=== PATIENT | male | born 1970 | race Caucasian/White ===

== ENCOUNTER 2017-04-21 18:55 | Inpatient (IN) | payer BC ==
[~2017-04-21] VITALS: Ht 188 cm; Wt 120.6 kg
[~2017-04-21 18:55] MED LIST: DXY100 PO; LISI40TA PO
[2017-04-21] MEDS ORDERED: SODIUM CHLORIDE 0.9% 1000ML 2,000 ML IV STA (19:08)
--- NOTE | 2017-04-21 19:16 | EMERGENCY ROOM VISIT NOTE ---
History Report prepared by Paola: Tan Hensley Under the Supervision of: Pb HenningO. First contact with patient: 19:07 Chief Complaint: REFERRED BY DOCTOR Stated Complaint: FREQUENT URIATION, BLURRY VISION History of Present Illness The patient is a 46 year old male who presents to the Emergency Room with complaints of persistent frequent urination that started 2 weeks ago. He says that he has had a dry mouth and has been persistently thirsty. He adds that he has had blurry vision. The patient notes that he has never had symptoms like this before. He was seen at the [facility] walk-in clinic and was referred here for evaluation. He denies any chest pain, nausea, vomiting, or shortness of breath. The patient says that he has hypertension, but no other medical conditions. He is a social drinker, and uses tobacco products. He has no surgical history. Source of History: patient, spouse/significant other Onset: 2 weeks ago Position: other (go) Timing: other (persistent) Associated Symptoms: No chest pain, No SOB, No nausea, No vomiting Note: Associated symptoms: Persistent thirst, blurry vision, dry mouth. Review of Systems See HPI for pertinent positives & negatives. A total of 10 systems reviewed and were otherwise negative. Past Medical & Surgical Medical Problems: (1) HTN (hypertension) Family History Diabetes mellitus Hypertension Social History Smoking Status: Current Every Day Smoker Alcohol Use: occasionally Marital Status: Housing Status: lives with family Occupation Status: employed Current/Historical Medications Scheduled Telmisartan/Hctz (Micardis Hct 80MG/12.5MG), 1 TAB PO DAILY Allergies Coded Allergies: No Known Allergies (Unverified , 12/16/07) Physical Exam Vital Signs Date Time Temp Pulse Resp B/P (MAP) Pulse Ox O2 Delivery O2 Flow Rate FiO2 04/21/17 22:49 99 28 144/96 94 Room Air 04/21/17 21:39 Room Air 04/21/17 20:42 94 22 130/98 94 Room Air 04/21/17 20:05 96 04/21/17 18:59 37.2 112 18 157/93 94 Room Air Physical Exam GENERAL: Patient is awake, alert, and in no acute distress. Patient is resting comfortably and showing no signs of anxiety EYES: The conjunctivae are clear. The pupils are round and reactive. EARS, NOSE, MOUTH AND THROAT: The nose is without any evidence of any deformity. Mucous membranes are moist tongue is midline NECK: The neck is nontender and supple. RESPIRATORY: Normal respiratory effort is noted there is no evidence of wheezing rhonchi or rales CARDIOVASCULAR: Heart sounds are tachycardic but regular, no definite murmur to auscultation. GASTROINTESTINAL: The abdomen is soft. Bowel sounds are present in all quadrants. Abdomen is nontender MUSCULOSKELETAL/EXTREMITIES: There is no evidence of gross deformity full range of motion is noted in the hips and shoulders SKIN: There is no obvious evidence of any rash. There are no petechiae, pallor or cyanosis noted. NEUROLOGIC: Patient is awake alert and oriented x3 strength is symmetric patellar reflexes are 2+ bilaterally Medical Decision & Procedures ER Provider Diagnostic Interpretation: X-ray results as stated below per interpretation by me and the radiologist. CHEST ONE VIEW PORTABLE HISTORY: dehydration COMPARISON: None. FINDINGS: Low lung volumes. Mild elevation of the right hemidiaphragm. The heart is normal in size. No pleural effusions. No pneumothorax. IMPRESSION: No acute process. Mild elevation of the right hemidiaphragm. Electronically signed by: Az Branch M.D. 04/21/2017 7:54 PM Dictated Date/Time: 04/21/2017 7:51 PM Laboratory Results 04/21/17 19:21 Red Blood Count 5.59, Mean Corpuscular Volume 84.4, Mean Corpuscular Hemoglobin 32.4, Mean Corpuscular Hemoglobin Concent 38.3, Neutrophils (%) (Auto) 67.1, Lymphocytes (%) (Auto) 24.3, Monocytes (%) (Auto) 7.1, Eosinophils (%) (Auto) 1.0, Basophils (%) (Auto) 0.3, Neutrophils # (Auto) 5.84, Lymphocytes # (Auto) 2.12, Monocytes # (Auto) 0.62, Eosinophils # (Auto) 0.09, Basophils # (Auto) 0.03 04/21/17 19:21 Test 04/21/17 19:04 04/21/17 19:21 04/21/17 19:35 04/21/17 19:40 Bedside Glucose > 600 mg/dl (70-99) White Blood Count 8.72 K/uL (4.8-10.8) Red Blood Count 5.59 M/uL (4.7-6.1) Hemoglobin 18.1 g/dL (14.0-18.0) Hematocrit 47.2 % (42-52) Mean Corpuscular Volume 84.4 fL (80-100) Mean Corpuscular Hemoglobin 32.4 pg (25-34) Mean Corpuscular Hemoglobin Concent 38.3 g/dl (32-36) Platelet Count 238 K/uL (130-400) Neutrophils (%) (Auto) 67.1 % Lymphocytes (%) (Auto) 24.3 % Monocytes (%) (Auto) 7.1 % Eosinophils (%) (Auto) 1.0 % Basophils (%) (Auto) 0.3 % Neutrophils # (Auto) 5.84 K/uL (1.4-6.5) Lymphocytes # (Auto) 2.12 K/uL (1.2-3.4) Monocytes # (Auto) 0.62 K/uL (0.11-0.59) Eosinophils # (Auto) 0.09 K/uL (0-0.5) Basophils # (Auto) 0.03 K/uL (0-0.2) Immature Granulocyte % (Auto) 0.2 % Immature Granulocyte # (Auto) 0.02 K/uL (0.00-0.02) Red Blood Cell Morphology Unremarkable Anion Gap 12.0 mmol/L (3-11) Est Creatinine Clear Calc Drug Dose 100.9 ml/min Estimated GFR () 76.9 Estimated GFR (Non- 66.4 BUN/Creatinine Ratio 12.4 (10-20) Calcium Level 9.2 mg/dl (8.5-10.1) Magnesium Level 2.3 mg/dl (1.8-2.4) Total Bilirubin 1.0 mg/dl (0.2-1) Direct Bilirubin 0.2 mg/dl (0-0.2) Aspartate Amino Transf (AST/SGOT) 20 U/L (15-37) Alanine Aminotransferase (ALT/SGPT) 53 U/L (12-78) Alkaline Phosphatase 246 U/L (45-117) Total Protein 7.6 gm/dl (6.4-8.2) Albumin 4.4 gm/dl (3.4-5.0) Amylase Level 29 U/L (25-115) Lipase 217 U/L (73-393) Beta-Hydroxybutyric Acid 26.30 mg/dL (0.2-2.81) Venous Blood pH 7.39 (7.36-7.41) Venous Blood Partial Pressure CO2 39 mmHg (38.0-50.0) Venous Blood Partial Pressure O2 60 mmHg Venous Blood HCO3 23 mmol/L Venous Blood Oxygen Saturation 88.8 % Venous Blood Base Excess -2.1 mEq/L Urine Color YELLOW Urine Appearance CLEAR (CLEAR) Urine pH 5.0 (4.5-7.5) Urine Specific [place] 1.037 (1.000-1.030) Urine Protein NEG (NEG) Urine Glucose (UA) 3+ (NEG) Urine Ketones 1+ (NEG) Urine Occult Blood NEG (NEG) Urine Nitrite NEG (NEG) Urine Bilirubin NEG (NEG) Urine Urobilinogen NEG (NEG) Urine Leukocyte Esterase NEG (NEG) Laboratory results per my review. Medications Administered Medications (Trade) Dose Ordered Sig/Mary Route Start Time Stop Time Status Last Admin Dose Admin Sodium Chloride 2,000 ml @ 999 mls/hr Q2H1M STAT IV 04/21/17 19:08 04/21/17 21:08 DC 04/21/17 19:38 999 MLS/HR Insulin Human Regular (novoLIN-R U-100 PER UNIT) 6 units NOW STAT IV 04/21/17 20:50 04/21/17 20:51 DC 04/21/17 21:08 6 UNITS ED Course 1906: The patient was evaluated in room A10. A complete history and physical examination were performed. 1907: Ordered NSS 2000 ml @ 999 mls/hr IV. 2049: Ordered Novolin-R U-100 PER UNIT 6 units IV. 2051: I reevaluated the patient and he is resting comfortably. The patient verbally expressed understanding and agreement with the treatment plan. The patient will be evaluated for further treatment. 2136: I discussed the patient with Dr. Victoria- Resident mis specialist ALLYSSA. He will evaluate the patient for further treatment. Medical Decision Differential diagnosis: Etiologies such as metabolic, infection, hypo/hyperglycemia, electrolyte abnormalities, cardiac sources, intracerebral event, toxicologic, neurologic, as well as others were entertained. Nursing notes reviewed. The patient is a 46-year-old male who does not have a history of diabetes started having polyuria and polydipsia. The patient was found have an elevated blood sugar and was sent to the emergency department for further evaluation. The patient does not appear to be in DKA at this time but he does have a very elevated blood glucose. He was treated with IV fluids and IV insulin. He was reevaluated multiple times. I discussed the patient's laboratory and radiographic studies with him. [place] degree of hyperglycemia I also discussed his case with the on-call group. They've agreed to evaluate the patient in the emergency department for further management and disposition. Medication Reconcilliation Current Medication List: was personally reviewed by me Blood Pressure Screening Patient's blood pressure: Elevated blood pressure Blood pressure disposition: Elevated BP felt to be situational Consults Time Called: 2132 Consulting Physician: Dr. Victoria - resident mis specialist ALLYSSA Returned Call: 2136 I discussed the patient with Dr. Victoria- Resident mis specialist ALLYSSA. He will evaluate the patient for further treatment. Impression Primary Impression: Hyperglycemia Additional Impression: Hyponatremia Scribe Attestation The scribe's documentation has been prepared under my direction and personally reviewed by me in its entirety. I confirm that the note above accurately reflects all work, treatment, procedures, and medical decision making performed by me. Departure Information Dispostion Being Evaluated By Hospitalist Referrals Agnes Aguilar, C.R.N.P. (PCP) Patient Instructions My [facility] Problem Qualifiers
[2017-04-21] MEDS ORDERED: TELM80TA4 PO (19:31)
[2017-04-21 19:45] LABS: VEN BLD GAS O2 SATURATION 88.8 %; VEN BLOOD GAS BASE EXCESS -2.1 mEq/L
[2017-04-21 19:51] LABS: URINE APPEARANCE CLEAR (CLEAR); URINE BILIRUBIN NEG (NEG); URINE COLOR YELLOW; URINE NITRITE NEG (NEG); URINE SPECIFIC GRAVITY 1.037 (1.000-1.030); UROBILINOGEN NEG (NEG)
[2017-04-21 19:52] LABS: MANUAL MICROSCOPIC REQUIRED? NO; REVIEW REQ? NO
--- NOTE | 2017-04-21 19:55 | DIAGNOSTIC IMAGING REPORT ---
CHEST ONE VIEW PORTABLE HISTORY: dehydration COMPARISON: None. FINDINGS: Low lung volumes. Mild elevation of the right hemidiaphragm. The heart is normal in size. No pleural effusions. No pneumothorax. IMPRESSION: No acute process. Mild elevation of the right hemidiaphragm. Electronically signed by: Az Branch M.D. 04/21/2017 7:54 PM Dictated Date/Time: 04/21/2017 7:51 PM
[2017-04-21 20:20] LABS: BUN/CREATININE RATIO 12.4 (10-20); CALCIUM 9.2 mg/dl (8.5-10.1); CREATININE 1.3 mg/dl (0.60-1.40); MAGNESIUM 2.3 mg/dl (1.8-2.4); POTASSIUM 3.9 mmol/L (3.5-5.1)
[2017-04-21 20:21] LABS: BETA-HYDROXYBUTYRATE 26.3 mg/dL (0.2-2.81)
[2017-04-21 20:24] LABS: HEMATOCRIT 47.2 % (42-52); MEAN CELL VOLUME 84.4 fL (80-100); MEAN CORPUSCULAR HEMOGLOBIN 32.4 pg (25-34); MEAN CORPUSCULAR HGB CONC 38.3 g/dl (32-36); PLATELET COUNT 238 K/uL (130-400); RED BLOOD COUNT 5.59 M/uL (4.7-6.1); WHITE BLOOD COUNT 8.72 K/uL (4.8-10.8)
[2017-04-21 20:28] LABS: BASO % 0.3 %; BASO ABS # 0.03 K/uL (0-0.2); COMPLETE YES; IG% 0.2 %; LYMPH % 24.3 %; LYMPH ABS # 2.12 K/uL (1.2-3.4); MONO % 7.1 %; NEUT % 67.1 %
[2017-04-21] MEDS ORDERED: NovoLIN-R INSULIN PER UNIT CHARGE IV STA (20:50)
[2017-04-21 21:39] VITALS: BMI 34.7
--- NOTE | 2017-04-21 22:13 | History and Physical ---
History & Physical Date & Time of Service: Apr 21, 2017 at 22:07 Chief Complaint: Frequent Uriation, Blurry Vision Primary Care Physician: Agnes Aguilar C.R.N.P. History of Present Illness Source: patient, family The patient presents as a referral from a [facility] walk-in clinic in [place]. The patient presents today complaining of 2 weeks of constant urination and blurry vision. He also complains of leg cramping bilaterally. Over the past 2 weeks, symptoms have been getting worse. He estimates that he is urinating 15 times per day. No dysuria. Every time drinks within 30 minutes is urinating. Denies any acute triggers to symptoms. He states he drinks Gatorade, vitamin water, soda. Given persistence of symptoms, told patient to go to Walk-in clinic today. BSG was taken and was above the upper limit of detection. He denies any pre-this diagnosis of diabetes. Father has diabetes, uncertain if it was type 1 or type 2 but states it was diagnosed later in life. Regarding other symptoms as possible triggers to his hyperglycemia, he denies any chest pain, no SOB, no coughing or wheezing. He has not had fevers, chills or nightsweats. Appetite has been normal but he has been trying to cut back on sugary foods. He is also trying to cut down on portion size for the past 1 month. No nausea, vomiting, diarrhea or constipation. On arrival to the emergency department, was found to have a blood sugar rate then 600. BMP revealed blood sugar of 768. He was treated with 2 L of normal saline bolus, given 6 units of regular insulin IV. He states that he has never had insulin before in his life Past Medical/Surgical History Medical Problems: (1) HTN (hypertension) Status: Chronic Surgeries - None Family History Diabetes mellitus Hypertension Social History Smoking Status: Current Some Day Smoker Smokeless Tobacco Use: Yes (chews tobacco) Alcohol Use: socially (on weekends; total 12 units per week.) Drug Use: none Marital Status: Housing status: lives with family Occupational Status: employed Immunizations History of Influenza Vaccine: Unknown History of Tetanus Vaccine?: Unknown History of Pneumococcal: No History of Hepatitis B Vaccine: Unknown Multi-Drug Resistant Organisms History of MDRO: No Allergies Coded Allergies: No Known Allergies (Unverified , 12/16/07) Home Medications Scheduled Telmisartan/Hctz (Micardis Hct 80MG/12.5MG), 1 TAB PO DAILY Review of Systems A 10 point review of systems was negative unless stated above. Physical Exam Vital Signs Date Time Temp Pulse Resp B/P (MAP) Pulse Ox O2 Delivery O2 Flow Rate FiO2 04/21/17 21:39 Room Air 04/21/17 20:42 94 22 130/98 94 Room Air 04/21/17 20:05 96 04/21/17 18:59 37.2 112 18 157/93 94 Room Air General Appearance: WD/WN, no apparent distress Head: normocephalic, atraumatic Eyes: normal inspection, EOMI ENT: hearing grossly normal, pharynx normal Neck: supple, no adenopathy, no JVD Respiratory/Chest: lungs clear, no respiratory distress Cardiovascular: regular rate, rhythm, no gallop, no murmur Abdomen/GI: normal bowel sounds, non tender, soft Back: no CVA tenderness, no muscle spasm Extremities/Musculoskelatal: no pedal edema, + calf tenderness (bilateral leg cramping with palpation), + pertinent finding (2+ pulses bilaterally, normal sensation in the toes) Neurologic/Psych: alert, normal mood/affect, oriented x 3 Skin: normal color, warm/dry, no rash Lymphatic: no adenopathy Diagnostics Laboratory Results Results Past 24 Hours Test 04/21/17 19:04 04/21/17 19:21 04/21/17 19:35 04/21/17 19:40 Range/Units Bedside Glucose > 600 70-99 mg/dl White Blood Count 8.72 4.8-10.8 K/uL Red Blood Count 5.59 4.7-6.1 M/uL Hemoglobin 18.1 14.0-18.0 g/dL Hematocrit 47.2 42-52 % Mean Corpuscular Volume 84.4 80-100 fL Mean Corpuscular Hemoglobin 32.4 25-34 pg Mean Corpuscular Hemoglobin Concent 38.3 32-36 g/dl Platelet Count 238 130-400 K/uL Neutrophils (%) (Auto) 67.1 % Lymphocytes (%) (Auto) 24.3 % Monocytes (%) (Auto) 7.1 % Eosinophils (%) (Auto) 1.0 % Basophils (%) (Auto) 0.3 % Neutrophils # (Auto) 5.84 1.4-6.5 K/uL Lymphocytes # (Auto) 2.12 1.2-3.4 K/uL Monocytes # (Auto) 0.62 0.11-0.59 K/uL Eosinophils # (Auto) 0.09 0-0.5 K/uL Basophils # (Auto) 0.03 0-0.2 K/uL Immature Granulocyte % (Auto) 0.2 % Immature Granulocyte # (Auto) 0.02 0.00-0.02 K/uL Red Blood Cell Morphology Unremarkable Sodium Level 125 136-145 mmol/L Potassium Level 3.9 3.5-5.1 mmol/L Chloride Level 89 98-107 mmol/L Carbon Dioxide Level 24 21-32 mmol/L Anion Gap 12.0 3-11 mmol/L Blood Urea Nitrogen 16 7-18 mg/dl Creatinine 1.30 0.60-1.40 mg/dl Est Creatinine Clear Calc Drug Dose 100.9 ml/min Estimated GFR () 76.9 Estimated GFR (Non- 66.4 BUN/Creatinine Ratio 12.4 10-20 Random Glucose 768 70-99 mg/dl Calcium Level 9.2 8.5-10.1 mg/dl Magnesium Level 2.3 1.8-2.4 mg/dl Total Bilirubin 1.0 0.2-1 mg/dl Direct Bilirubin 0.2 0-0.2 mg/dl Aspartate Amino Transf (AST/SGOT) 20 15-37 U/L Alanine Aminotransferase (ALT/SGPT) 53 12-78 U/L Alkaline Phosphatase 246 45-117 U/L Total Protein 7.6 6.4-8.2 gm/dl Albumin 4.4 3.4-5.0 gm/dl Amylase Level 29 25-115 U/L Lipase 217 73-393 U/L Beta-Hydroxybutyric Acid 26.30 0.2-2.81 mg/dL Venous Blood pH 7.39 7.36-7.41 Venous Blood Partial Pressure CO2 39 38.0-50.0 mmHg Venous Blood Partial Pressure O2 60 mmHg Venous Blood HCO3 23 mmol/L Venous Blood Oxygen Saturation 88.8 % Venous Blood Base Excess -2.1 mEq/L Urine Color YELLOW Urine Appearance CLEAR CLEAR Urine pH 5.0 4.5-7.5 Urine Specific [place] 1.037 1.000-1.030 Urine Protein NEG NEG Urine Glucose (UA) 3+ NEG Urine Ketones 1+ NEG Urine Occult Blood NEG NEG Urine Nitrite NEG NEG Urine Bilirubin NEG NEG Urine Urobilinogen NEG NEG Urine Leukocyte Esterase NEG NEG Impression Assessment and Plan 46-year-old male with profound hyperglycemia. HbA1c is pending, though I suspect some new diagnosis of type 2 diabetes mellitus. Based on the fact that he is not acidotic, does not have an elevated anion gap, this does not appear to be a presentation of DKA. Our plan for him is as follows: Hyperglycemia - Rehydrated with 3 L normal saline bolus, and we will continue with NSS + 20 KCl at 200 ml/r - She has received 6 units IV regular insulin in the ED - At this point, I would hold off on either an insulin infusion or frequent insulin boluses, as I suspect the patient is exquisitely insulin sensitive. The main issue pertaining to hyperglycemia is volume depletion, and at this time we'll focus on rehydrating the patient as a means to bring down his blood sugars - Keep the patient fasting overnight; we can restart a diet in the morning with before meals and at bedtime Accu-Cheks to follow blood sugars - Well check BMP, mag, phosphorus every 4 hours; this will be staggered with [id number] blood sugars every 2 hours - HbA1c is pending - Diabetic education ordered - When ready for discharge, patient be discharged on metformin and titrated upwards in conjunction with PCP; will defer this decision to the daytime team Mild DENISE - Creatinine 1.3 on arrival; in comparison to baseline 1.1 - Likely secondary to volume depletion from osmotic diuresis - We will aggressively rehydrate the patient, and follow serial BMPs overnight Pseudohyponatremia - Sodium on arrival 125 in conjunction with blood sugar 768 - Corrected sodium is actually 135 - Given that the sodium drop is factitious, I think it is safe that he continue with the HCTZ component of his Micardis Hypertension - Continue Micardis DVT prophylaxis - SCD - Alex - Lovenox CODE STATUS - Level I full code Disposition - Telemetry - I do not anticipate need for OT and PT evaluations at this time- Attending Addendum: I have physically seen and examined this patient, have supervised the medical residents activities, and agree with the H&P as noted above with the following exceptions as noted. The patient denies chest pain, palpitations, shortness of breath, cough, lower extremity swelling, vision change, hearing change, sore throat, fevers, chills, sweats, weight change, fatigue, nausea, vomiting, abdominal pain, pelvic pain, blood in urine or stool, dysuria, lightheadedness, dizziness, headache, memory loss, rash, abnormal bruising or bleeding, imbalance, focal or generalized weakness, numbness or tingling in arms or legs, generalized arthralgias or myalgias, back or neck pain, night sweats, or allergy symptoms. The review of systems is otherwise negative other than for that already noted above, and at least 10 systems have been reviewed. The patient is awake, well-developed and adequately nourished, alert and oriented 3, normocephalic and atraumatic, lying in bed and in no acute distress. HEENT--PERRL, EOMI, mucous membranes and oropharynx dry. Neck--supple, no JVD or bruits, thyroid normal, trachea midline, no adenopathy. Heart--normal S1 and S2, no extra beats, no murmurs, rubs or gallops. Lungs--clear bilaterally with good air movement, no respiratory distress, no accessory muscle use. Abdomen--normal bowel sounds and soft, nontender and nondistended, no hernias or masses, no organomegaly. Extremities--no cyanosis, clubbing or edema. There are good distal pulses b/l. Dermatologic--normal skin turgor, normal color, warm and dry, no abnormal lymph nodes, no rash. Neurologic--cranial nerves II through XII grossly intact, motor and sensory examination normal. Rheumatologic--normal range of motion, nontender, muscles and joints. Psychiatric--normal affect. Assessment and Plan: 1. Hyperglycemia/new onset diabetes mellitus/no obvious signs of infection-- the patient will be admitted to telemetry unit for close monitoring. He is status post 6 units of regular IV insulin while in the ED. He has received 3 L of normal saline in the emergency department. We'll continue rehydration with normal saline with potassium at 150 ML's per hour. Follow every 4 hours BMP, magnesium, phosphorus and BHBA. Place on Accu-Cheks every 4 hours tonight, alternating with above laboratories, and cover with NovoLog sliding scale. 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 2. Hypertension--hold HCTZ, continue Micardis. Level of Care Telemetry Advanced Directives Existing Advance Directive: No Existing Living Will: No Existing Power of Tail Board Worker: No Resuscitation Status FULL RESUSCITATION VTE Prophylaxis VTE Risk Assessment Done? Y/N: Yes Risk Level: Moderate Given or contraindicated: Enoxaparin (Lovenox)SQ Social Service Consult None Apply
[2017-04-21] MEDS ORDERED: POLYETHYLENE (MIRALAX) 17 GM PACK PO PRN (22:15)
[2017-04-21] MEDS ORDERED: MAGNESIUM HYDROXIDE SUSP 30 ML UDC PO PRN (22:15)
[2017-04-21] MEDS ORDERED: ACETAMINOPHEN 325 MG TAB PO PRN (22:15)
[2017-04-21] MEDS ORDERED: ALUMINUM/MAGNESIUM/SIMETH (MAALOX MAX) 30 ML UDC PO PRN (22:15)
[2017-04-21] MEDS ORDERED: POTASSIUM CHLORIDE INJ 40 MEQ in SODIUM CHLORIDE 0.9% 1000ML 1,000 ML IV ONE (22:15)
[2017-04-21] MEDS ORDERED: ONDANSETRON INJ 2 MG/ML 2 ML VIAL IV PRN (22:15)
[2017-04-22] VITALS: BP 169/97; PULSE 104; TEMP 36.4; O2SAT 95
[2017-04-22 00:58] LABS: BUN/CREATININE RATIO 14.4 (10-20); CALCIUM 8.8 mg/dl (8.5-10.1); CREATININE 0.98 mg/dl (0.60-1.40); MAGNESIUM 2.3 mg/dl (1.8-2.4); POTASSIUM 4.1 mmol/L (3.5-5.1)
[2017-04-22 01:17] LABS: BETA-HYDROXYBUTYRATE 19.76 mg/dL (0.2-2.81)
[2017-04-22] MEDS: NSS + 20MEQ KCL 1000ML 1,000 ML IV SCH ×3 (03:31→11:36)
[2017-04-22 04:00] VITALS: BP 150/88; PULSE 84; TEMP 36.4; O2SAT 94
[2017-04-22 04:16] LABS: PROTHROMBIN TIME (PATIENT) 10.6 SECONDS (9.0-12.0)
[2017-04-22 04:24] LABS: BUN/CREATININE RATIO 14.7 (10-20); CALCIUM 8.3 mg/dl (8.5-10.1); POTASSIUM 4.3 mmol/L (3.5-5.1)
[2017-04-22 05:05] LABS: HEMATOCRIT 42.5 % (42-52); MEAN CELL VOLUME 83.8 fL (80-100); MEAN CORPUSCULAR HGB CONC 38.1 g/dl (32-36); MEAN PLATELET VOLUME 10.2 fL (7.4-10.4); PLATELET COUNT 187 K/uL (130-400); RED BLOOD COUNT 5.07 M/uL (4.7-6.1); WHITE BLOOD COUNT 6.91 K/uL (4.8-10.8)
[2017-04-22 07:08] LABS: ESTIMATED AVERAGE GLUCOSE 243 mg/dl; HA1C FLAG Normal (Normal)
[2017-04-22] MEDS ORDERED: HHS GOAL RANGE 250-350 mg/dl ONE (07:15)
--- NOTE | 2017-04-22 07:32 | Family Medicine Progress Note ---
Progress Note Date of Service Apr 22, 2017. Subjective Pt evaluation today including: conversation w/ patient, physical exam Voiding: no voiding problems Mr Zarate feels well this morning. He is adamant about going home today. 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 Last saw his PCP 1 year previously (December 2015) and fasting glucose 106. Cholesterol 155, HDL 33, Triglycerides 388. He did not follow up to that annual check up but was aware of the results generally. All Other Systems: Reviewed and Negative Medications Current Inpatient Medications Medications (Trade) Dose Ordered Sig/Mary Route Start Time Stop Time Status Last Admin Dose Admin Acetaminophen (Tylenol Tab) 650 mg Q4H PRN PO 04/21/17 22:15 05/21/17 22:14 Al Hydrox/Mg Hydrox/Simethicone (Maalox Max Susp) 15 ml Q4H PRN PO 04/21/17 22:15 05/21/17 22:14 Magnesium Hydroxide (Milk Of Magnesia Susp) 30 ml Q6H PRN PO 04/21/17 22:15 05/21/17 22:14 Polyethylene (Miralax Powder Packet) 17 gm DAILY PRN PO 04/21/17 22:15 05/21/17 22:14 Ondansetron HCl (Zofran Inj) 4 mg Q6H PRN IV 04/21/17 22:15 05/21/17 22:14 Potassium Chloride/Sodium Chloride 1,000 ml @ 200 mls/hr Q5H IV 04/22/17 01:00 05/22/17 00:59 04/22/17 06:18 200 MLS/HR Enoxaparin Sodium (Lovenox Inj) 40 mg QAM SQ 04/22/17 09:00 05/22/17 08:59 Metformin HCl (Glucophage Tab) 500 mg BID PO 04/22/17 09:00 05/22/17 08:59 UNV Insulin Aspart (novoLOG ASPART) SLIDING SCALE PCHS SC 04/22/17 08:00 05/22/17 07:59 UNV Miscellaneous (Insulin Protocol Hhs Goal Range) 1 ea ONE ONCE N/A 04/22/17 07:15 04/22/17 07:16 UNV Objective Vital Signs Date Time Temp Pulse Resp B/P (MAP) Pulse Ox O2 Delivery O2 Flow Rate FiO2 04/22/17 04:00 36.4 84 150/88 (108) 94 Room Air 04/22/17 04:00 94 Room Air 04/22/17 00:00 36.4 104 16 169/97 (121) 95 Room Air 04/22/17 00:00 95 Room Air 04/21/17 23:13 99 28 144/96 94 04/21/17 22:49 99 28 144/96 94 Room Air 04/21/17 21:39 Room Air 04/21/17 20:42 94 22 130/98 94 Room Air 04/21/17 20:05 96 04/21/17 18:59 37.2 112 18 157/93 94 Room Air Physical Exam General Appearance: no apparent distress, + obese Eyes: normal inspection, EOMI Neck: supple Respiratory/Chest: chest non-tender, lungs clear, normal breath sounds, no respiratory distress, no accessory muscle use Cardiovascular: regular rate, rhythm, no edema, no JVD, no murmur Abdomen: normal bowel sounds, non tender, soft Neurologic/Psychiatric: no motor/sensory deficits (grossly), alert, oriented x 3 Skin: normal color, warm/dry, no rash Laboratory Results 04/22/17 03:49 04/22/17 03:49 Test 04/21/17 19:21 04/21/17 19:35 04/21/17 19:40 04/22/17 00:17 Immature Granulocyte % (Auto) 0.2 % White Blood Count 8.72 K/uL (4.8-10.8) Red Blood Count 5.59 M/uL (4.7-6.1) Hemoglobin 18.1 g/dL (14.0-18.0) Hematocrit 47.2 % (42-52) Mean Corpuscular Volume 84.4 fL (80-100) Mean Corpuscular Hemoglobin 32.4 pg (25-34) Mean Corpuscular Hemoglobin Concent 38.3 g/dl (32-36) Platelet Count 238 K/uL (130-400) Neutrophils (%) (Auto) 67.1 % Lymphocytes (%) (Auto) 24.3 % Monocytes (%) (Auto) 7.1 % Eosinophils (%) (Auto) 1.0 % Basophils (%) (Auto) 0.3 % Neutrophils # (Auto) 5.84 K/uL (1.4-6.5) Lymphocytes # (Auto) 2.12 K/uL (1.2-3.4) Monocytes # (Auto) 0.62 K/uL (0.11-0.59) Eosinophils # (Auto) 0.09 K/uL (0-0.5) Basophils # (Auto) 0.03 K/uL (0-0.2) Immature Granulocyte # (Auto) 0.02 K/uL (0.00-0.02) Red Blood Cell Morphology Unremarkable Estimated Average Glucose 243 mg/dl Hemoglobin A1c 10.1 % (4.5-5.6) Total Bilirubin 1.0 mg/dl (0.2-1) Direct Bilirubin 0.2 mg/dl (0-0.2) Aspartate Amino Transf (AST/SGOT) 20 U/L (15-37) Alanine Aminotransferase (ALT/SGPT) 53 U/L (12-78) Alkaline Phosphatase 246 U/L (45-117) Total Protein 7.6 gm/dl (6.4-8.2) Albumin 4.4 gm/dl (3.4-5.0) Amylase Level 29 U/L (25-115) Lipase 217 U/L (73-393) Venous Blood pH 7.39 (7.36-7.41) Venous Blood Partial Pressure CO2 39 mmHg (38.0-50.0) Venous Blood Partial Pressure O2 60 mmHg Venous Blood HCO3 23 mmol/L Venous Blood Oxygen Saturation 88.8 % Venous Blood Base Excess -2.1 mEq/L Urine Color YELLOW Urine Appearance CLEAR (CLEAR) Urine pH 5.0 (4.5-7.5) Urine Specific [place] 1.037 (1.000-1.030) Urine Protein NEG (NEG) Urine Glucose (UA) 3+ (NEG) Urine Ketones 1+ (NEG) Urine Occult Blood NEG (NEG) Urine Nitrite NEG (NEG) Urine Bilirubin NEG (NEG) Urine Urobilinogen NEG (NEG) Urine Leukocyte Esterase NEG (NEG) Phosphorus Level 4.0 mg/dl (2.5-4.9) Magnesium Level 2.3 mg/dl (1.8-2.4) Beta-Hydroxybutyric Acid 19.76 mg/dL (0.2-2.81) Test 04/22/17 03:49 04/22/17 06:15 Red Blood Count 5.07 M/uL (4.7-6.1) Mean Corpuscular Volume 83.8 fL (80-100) Mean Corpuscular Hemoglobin 32.0 pg (25-34) Mean Corpuscular Hemoglobin Concent 38.1 g/dl (32-36) RDW Standard Deviation 37.3 fL (36.4-46.3) RDW Coefficient of Variation 12.3 % (11.5-14.5) Mean Platelet Volume 10.2 fL (7.4-10.4) Prothrombin Time 10.6 SECONDS (9.0-12.0) Prothromb Time International Ratio 1.0 (0.9-1.1) Anion Gap 4.0 mmol/L (3-11) Est Creatinine Clear Calc Drug Dose 131.2 ml/min Estimated GFR () 105.6 Estimated GFR (Non- 91.1 BUN/Creatinine Ratio 14.7 (10-20) Calcium Level 8.3 mg/dl (8.5-10.1) Bedside Glucose 240 mg/dl (70-99) Assessment and Plan 46-year-old male with profound hyperglycemia. HbA1C of 10.1. Diagnosis of [facility], newly diagnosed T2DM with HbA1C of 10.1. 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 - currently at [facility] goal of 250-350 BSG after 6 units IV insulin however this is without eating - based on HbA1C recommend basal bolus insulin regimen however will start metformin and consider SGLT2 inhibitor - Diabetic education ordered Pseudohyponatremia - resolved Hypertension - Will treat with lisinopril and titrate up as outpatient for renal protection Hyperlipidemia - based on labs from 2016 - ASCVD 56% in next 10 years - recommend moderate intensity statin - recommend starting as an outpatient with up to date labs DVT prophylaxis - SCD - MELANIE - Lovenox CODE STATUS - Full Disposition - Patient wishes to be discharged today. Based on BSGs at lunch/dinner he may need to sign out AMA but hopefully will be well controlled as he has only required 6 units IV insulin so far. Resident Tracking Resident Involvement: Resident Care Provided Care Provided: Adult [facility] Medicine
[2017-04-22 07:48] VITALS: BP 147/84; PULSE 89; TEMP 37.1; O2SAT 94
[2017-04-22] MEDS ORDERED: METFORMIN HCL 500 MG TAB PO SCH (08:00)
[2017-04-22] MEDS ORDERED: INSULIN ASPART 100 UNITS/ML 3 ML PEN SC SCH (08:00)
[2017-04-22] MEDS ORDERED: ENOXAPARIN 40 MG/0.4 ML SYR SQ SCH (09:00)
[2017-04-22] MEDS ORDERED: LISINOPRIL 20 MG TAB PO SCH (09:00)
[2017-04-22] MEDS ORDERED: GLIMEPIRIDE 2 MG TAB PO SCH (09:00)
[2017-04-22 09:23] LABS: BUN/CREATININE RATIO 18.3 (10-20); CALCIUM 8.1 mg/dl (8.5-10.1); CREATININE 0.82 mg/dl (0.60-1.40); POTASSIUM 3.9 mmol/L (3.5-5.1)
[2017-04-22 09:38] LABS: BETA-HYDROXYBUTYRATE 14.41 mg/dL (0.2-2.81); PHOSPHORUS 2.6 mg/dl (2.5-4.9)
[2017-04-22 11:05] VITALS: Ht 188 cm; Wt 120.6 kg
[2017-04-22] MEDS ORDERED: GLC500 PO (11:39)
[2017-04-22] MEDS ORDERED: AMR2 PO (11:39)
[2017-04-22 11:52] VITALS: BP 124/73; PULSE 78; TEMP 36.9; O2SAT 95
[2017-04-22] MEDS ORDERED: GLUC1TES EXT (11:57)
--- NOTE | 2017-04-22 12:22 | Discharge Instructions ---
Discharge Instructions Date of Service Apr 22, 2017. Admission Reason for Admission: Hyperglycemia Discharge Discharge Diagnosis / Problem: Type 2 diabetes mellitus, Hyperosmolar hyperglycemic state Discharge Goals Goal(s): Improve disease control Activity Recommendations Activity Limitations: resume your previous activity . Instructions / Follow-Up Instructions / Follow-Up You were diagnosed with type 2 diabetes. You have been started on two medications for diabetes. Please take all medications as prescribed. The sugar in your urine can make you dehydrated therefore we recommend you drink plenty to stay hydrated. Please continue on your hypertension medications as prescribed. Follow up with PCP within the next week for up titration of your metformin, diabetes education. We would also recommend having a fasting lipid profile. Current Hospital Diet Patient's current hospital diet: Diabetes Type 2 Diet Discharge Diet Recommended Diet: Diabetes Type 2 Diet Pending Studies Studies pending at discharge: no Laboratory Results Hemoglobin A1c Test 04/21/17 19:21 Range/Units Estimated Average Glucose 243 mg/dl Hemoglobin A1c 10.1 H 4.5-5.6 % Medical Emergencies . Who to Call and When: Medical Emergencies: If at any time you feel your situation is an emergency, please call 911 immediately. . Non-Emergent Contact Non-Emergency issues call your: Primary Care Provider . . "Provider Documentation" section prepared by Lamin Gamboa. . VTE Core Measure Inpt VTE Proph given/why not?: Refusal of treatmnt by pt
--- NOTE | 2017-04-22 12:38 | Discharge Summary ---
Discharge Summary Date of Service Apr 22, 2017. Discharge Summary Admission Date: Apr 21, 2017 at 22:05 Discharge Date: Apr 22, 2017 Immunizations: Have You Had Influenza Vaccine: Unknown History of Tetanus Vaccine?: Unknown History of Pneumococcal: No History of Hepatitis B Vaccine: Unknown Hospital Course Total Time Spent: Less than 30 minutes This includes examination of the patient, discharge planning, medication reconciliation, and communication with other providers. Discharge Instructions Please refer to the electronic Patient Visit Report (Discharge Instructions) for additional information.
[2017-04-22 13:12] VITALS: BP 124/73; PULSE 78; TEMP 36.9; O2SAT 95
--- NOTE | 2017-04-22 16:18 | Discharge Summary ---
Discharge Summary Date of Service Apr 22, 2017. (Lamin Gamboa MD) Discharge Summary Admission Date: Apr 21, 2017 at 22:05 Discharge Date: Apr 22, 2017 Discharge Disposition: Home Principal Diagnosis: Hyperosmolar hyperglycemic state Problems/Secondary Diagnoses: Type 2 diabetes mellitus Pseudohyponatremia Immunizations: Have You Had Influenza Vaccine: Unknown History of Tetanus Vaccine?: Unknown History of Pneumococcal: No History of Hepatitis B Vaccine: Unknown (Lamin Gamboa MD) Medication Reconciliation New Medications: Glucose Blood (Inverted [place] Verio Iq Test St) 1 Antoinette Antoinette 1 EA EXT TID for 30 Days, #1 BOX Glimepiride (Glimepiride) 2 Mg Tab 2 MG PO QAM for 30 Days, #30 TAB Metformin HCl (Metformin HCl) 500 Mg Tab 500 MG PO BIDM for 30 Days, #60 TAB Continued Medications: Telmisartan/Hctz (Micardis Hct 80MG/12.5MG) Tab 1 TAB PO DAILY, TAB Discharge Exam please refer to note from today for subjective and objective findings (Lamin Gamboa MD) Review of Systems: Constitutional: No fever Respiratory: No shortness of breath Cardiovascular: No chest pain Abdomen: No pain, No nausea, No vomiting Physical Exam: General Appearance: no apparent distress Respiratory/Chest: lungs clear, no respiratory distress Cardiovascular: regular rate, rhythm Abdomen / GI: normal bowel sounds, non tender, soft Neurologic/Psychiatric: alert, oriented x 3 Skin: warm/dry (Yael Perry M.D.) Hospital Course 46-year-old male with profound hyperglycemia. HbA1C of 10.1. Diagnosed with [facility]. [facility], newly diagnosed T2DM with HbA1C of 10.1. - Glucose levels within range 250-350 with only 6 units IV insulin given in ER - Rehydrated adequately with 5-6L IV fluids - started on metformin 500mg BID - up titrate as outpatient, patient warned about GI side effects and to take with food and - started on glimepiride in addition due to elevated HbA1C - Diabetic education nurse seen and provided with glucose monitor, needles and testing strips Pseudohyponatremia - resolved secondary to hyperglycemia Hypertension - continue outpatient regimen, consider up titrating ACEi for renal protection Hyperlipidemia - based on labs from 2016 - ASCVD 56% in next 10 years - recommend moderate intensity statin - recommend starting as an outpatient with up to date labs Total Time Spent: Less than 30 minutes This includes examination of the patient, discharge planning, medication reconciliation, and communication with other providers. (Lamin Gamboa MD) Resident Physician Supervision Note: I was present with Dr. Gamboa in bedside. I verified the plata history and physical, reviewed labs and image studies, discussed the case with the resident and agree with the findings and care plan. Total Time Spent: Greater than 30 minutes (35) (Yael Perry M.D.) Discharge Instructions Please refer to the electronic Patient Visit Report (Discharge Instructions) for additional information. (Lamin Gamboa MD) Follow-Up Follow up with PCP: Fri 11:00am [facility] [place] Internal Medicine [place] (Lamin Gamboa MD) Additional Copies To Demar Ruiz M.D.
== END 2017-04-22 13:50 | disposition home or self-care (01) | DRG 638 ==
LOC: C.EDB 18:58 → C.2E 22:05 → CANRESERV 22:37 → ENRESERV 22:37 → EDBEDREQSVC 22:43 → ENRESERV 22:48
PROVIDERS: ADMIT Student in an Organized Health Care Education/Training Program; ATTEND Family Medicine
DX: E11.00 Type 2 diabetes mellitus with hyperosmolarity without nonketotic hyperglycemic-hyperosmolar coma (NKHHC) (principal); N17.9 Acute kidney failure, unspecified; E87.1 Hypo-osmolality and hyponatremia; E11.65 Type 2 diabetes mellitus with hyperglycemia; I10 Essential (primary) hypertension; E78.5 Hyperlipidemia, unspecified; F17.220 Nicotine dependence, chewing tobacco, uncomplicated; Z79.899 Other long term (current) drug therapy; Z83.3 Family history of diabetes mellitus; Z82.49 Family history of ischemic heart disease and other diseases of the circulatory system

== ENCOUNTER → 2017-05-02 | Outpatient (CLI) | payer BC ==
[~2017-05-02] MED LIST changes: +AMR2 PO; -DXY100 PO; +GLC500 PO; +GLUC1TES EXT; -LISI40TA PO; +TELM80TA4 PO
[2017-05-02 17:41] LABS: ALT/SGPT 75 U/L (12-78); AST/SGOT 31 U/L (15-37); BLOOD UREA NITROGEN 14 mg/dl (7-18); BUN/CREATININE RATIO 14.7 (10-20); CALCIUM 8.7 mg/dl (8.5-10.1); CARBON DIOXIDE 29 mmol/L (21-32); CHLORIDE 104 mmol/L (98-107); CREATININE 0.92 mg/dl (0.60-1.40); GLUCOSE 82 mg/dl (70-99); POTASSIUM 3.8 mmol/L (3.5-5.1); SODIUM 138 mmol/L (136-145)
[2017-05-02 17:48] LABS: ALB/GLOB RATIO 1.4 (0.9-2); ALKALINE PHOSPHATASE 74 U/L (45-117); CHOLESTEROL 118 mg/dl (0-200); HDL CHOLESTEROL 40 mg/dl; LDL CHOLESTEROL CALCULATED 36 mg/dl; TRIGLYCERIDES 211 mg/dl (0-150); VERY LOW DENSITY LIPOPROT CALC 42 mg/dl
[2017-05-02 17:56] LABS: RATIO 7.9 mcg/mg (0-30.0)
== END | disposition home or self-care (01) ==
LOC: C.LABBFT 11:38
PROVIDERS: ATTEND Physician Assistant Medical
DX: E11.9 Type 2 diabetes mellitus without complications (principal)

== ENCOUNTER → 2017-07-26 | Outpatient (CLI) | payer BC ==
[~2017-07-26] MED LIST changes: -TELM80TA4 PO; +TELM80TA6 PO
[2017-07-26 13:02] LABS: HEMOGLOBIN A1C 5.2 % (4.5-5.6)
== END | disposition home or self-care (01) ==
LOC: C.LABBC 09:00
PROVIDERS: ATTEND Physician Assistant Medical
DX: E11.65 Type 2 diabetes mellitus with hyperglycemia (principal)

== ENCOUNTER → 2017-12-08 | Outpatient (CLI) | payer BC ==
[2017-12-08 13:20] LABS: ALBUMIN 4.2 gm/dl (3.4-5.0); ALT/SGPT 26 U/L (12-78); AST/SGOT 18 U/L (15-37); BLOOD UREA NITROGEN 14 mg/dl (7-18); CALCIUM 9.1 mg/dl (8.5-10.1); CARBON DIOXIDE 27 mmol/L (21-32); CREATININE 0.97 mg/dl (0.60-1.40); GLUCOSE 90 mg/dl (70-99); SODIUM 139 mmol/L (136-145)
[2017-12-08 13:23] LABS: ALKALINE PHOSPHATASE 84 U/L (45-117); CHOLESTEROL 130 mg/dl (0-200); LDL CHOLESTEROL CALCULATED 58 mg/dl; TOTAL PROTEIN 7.6 gm/dl (6.4-8.2)
== END | disposition home or self-care (01) ==
LOC: C.LABBFT 09:22
PROVIDERS: ATTEND Internal Medicine
DX: E11.01 Type 2 diabetes mellitus with hyperosmolarity with coma (principal)

== ENCOUNTER 2021-07-14 22:47 | Inpatient (IN) ==
[2021-07-14 23:32] LABS: Basophils # (auto) 0.02 K/uL (0-0.2); Basophils % (auto) 0.2 %; Eosinophils # (auto) 0.19 K/uL (0-0.5); Eosinophils % (auto) 1.8 %; Hemoglobin 15.8 g/dL (14.0-18.0); Immature Granulocytes # (auto) 0.02 K/uL (0.00-0.02); Immature Granulocytes % (auto) 0.2 %; Lymphocytes # (auto) 2.86 K/uL (1.2-3.4); Lymphocytes % (auto) 27.2 %; Mean Corpuscular Hemoglobin 31.9 pg (25-34); Mean Corpuscular Hgb Conc 34.3 g/dL (32-36); Mean Corpuscular Volume 92.9 fL (80-100); Mean Platelet Volume 10.1 fL (7.4-10.4); Monocytes % (auto) 7.6 %; Neutrophils # (auto) 6.64 K/uL (1.4-6.5); Platelet Count 263 K/uL (130-400); RDW Coefficient of Variation 13.4 % (11.5-14.5); RDW Standard Deviation 44.9 fL (36.4-46.3); Red Blood Count 4.95 M/uL (4.7-6.1); White Blood Count 10.53 K/uL (4.8-10.8)
[2021-07-14 23:42] LABS: D Dimer 500 ug/L FEU (0-500)
[2021-07-14 23:50] LABS: Albumin Level 3.7 gm/dl (3.4-5.0); BUN Creatinine Ratio 18.1 (10-20); Calcium 8.5 mg/dl (8.5-10.1); Creatinine Clr Calc Pharmacy 109.2 ml/min; Est GFR (African American) 84.1 ml/min; Est GFR (Non-African American) 72.5 ml/min; Potassium 3.9 mmol/L (3.5-5.1)
[2021-07-14 23:55] LABS: Albumin Globulin Ratio 1.2 (0.9-2); Bilirubin,Total 0.4 mg/dl (0.2-1); Total Protein 6.7 gm/dl (6.4-8.2); Troponin I 0.04 ng/ml (0-0.045)
[2021-07-15] MEDS ORDERED: OPTIRAY 320 100ml IV ONE (00:37)
--- NOTE | 2021-07-15 01:48 | Emergency Department Note ---
Impression & Plan SOB (shortness of breath), Abdominal bloating, CHF (congestive heart failure), Abnormal CT scan, gallbladder ED Provider Note INFORMANT: Patient ED PROVIDER(S): Ed Conteh MD CHIEF COMPLAINT: Shortness of breath PLAN: Disposition: Admitted Condition: Good Outpatient prescription management: none Referral: None MEDICAL DECISION MAKING: Patient presented with shortness of breath. Further history he also noted orthopnea and PND. The patient had some mild epigastric abdominal discomfort on examination. His chest x-ray was concerning for some mild CHF. The patient was mildly tachycardic. ECG showed a sinus tachycardia with frequent PVCs. The patient had an unremarkable CBC, LFTs, chemistry panel, D-dimer and troponin. The patient BNP was elevated concerning for CHF. CT scan of the abdomen pelvis was performed. The patient does have pleural effusions noted. Gallbladder appeared abnormal and ultrasound imaging was recommended. Patient had an ambulatory pulse ox performed and was 91%. Consolation of symptoms require further management in the hospital as this is concerning for possible new onset CHF. Patient and are in agreement. Consultation was made with Dr. Carlos Merino of the [facility] service. Patient was evaluated in the ER for further management. Triage Nursing notes reviewed and agree them. Vital Signs: reviewed and remarkable for mild tachycardia Differential diagnosis: Reactive airway disease, pneumonia, pneumothorax, COPD, CHF, infections, cardiac ischemia, pulmonary embolism, musculoskeletal, gastrointestinal, biliary pathology, peptic ulcer disease, obstruction, as well as other pathologies. Diagnostics interpreted by me: ECG: Twelve-lead ECG reveals sinus tachycardia at 122 bpm. Frequent PVCs noted. Left atrial enlargement. Nonspecific T wave abnormality present. No ST elevation. Normal axis. Cardiac Monitoring: Cardiac monitoring ordered by me: The patient was placed on continuous cardiac monitoring and observed. It revealed a sinus tachycardic rhythm at 117 beats per minute without evidence of dysrhythmia. Imaging studies: Chest x-ray concerning for CHF. CT imaging of the abdomen pelvis reveals pleural effusions and an abnormal appearance of the gallbladder. No obstruction. I refer you to the EMR for further details. Gallbladder ultrasound pending. HPI: The patient is a 50 year old male who presents to the Emergency Room with complaints of shortness of breath. This started a week ago and is persisting. The patient also notes the following associated symptoms, upper abdominal discomfort. Patient also notes history of PND and dyspnea on exertion. He also notes orthopnea. patient has found no relieving factors. Current pain is rated as 3/10. Pt denies LOC, headache, fevers, chills, diaphoresis, visual changes, neck pain, chest pain, nausea, vomiting, back pain, melena, hematochezia, urinary symptoms, numbness, weakness, lymphadenopathy, rash, or other complaints. ROS: See above HPI for pertinent positives & negatives. A total of 10 systems reviewed and were otherwise negative. PAST MEDICAL HISTORY:See Below , hypertension, diabetes PAST SURGICAL HISTORY:See Below, FAMILY HISTORY:See Below SOCIAL HISTORY:See Below, HOME MEDICATIONS:See Below ALLERGIES:See Below VITALS:See Below PHYSICAL EXAMINATION: GENERAL: Awake, alert, mildly uncomfortable-appearing, in no distress HENT: Normocephalic, atraumatic. Oropharynx unremarkable. EYES: Normal conjunctiva. Sclera non-icteric. NECK: Inspection normal. Non-tender. Supple. No nuchal rigidity. FROM. No masses. RESPIRATORY: Clear to auscultation. No wheezes. No rales. Normal respiratory effort. CARDIAC: Tachycardic rate. Normal rhythm. No murmurs. No rubs. Extremities warm and well perfused. Pulses equal. No JVD. GI: Soft, mildly-distended. Epigastric tenderness to palpation. No rebound or guarding. No masses. RECTAL: Deferred. MUSCULOSKELETAL: Atraumatic. Chest examination reveals no tenderness. The back is symmetrical on inspection without obvious abnormality. There is no CVA tenderness to palpation. No joint edema. LOWER EXTREMITIES: Calves are equal size bilaterally and non-tender. No edema. No discoloration. NEURO: Normal sensorium. No sensory or motor deficits noted. SKIN: No rash or jaundice noted. Ed Conteh MD Past Med/Surg History Medical History Arrhythmia "extra beat" Diabetes mellitus, type 2 History of COVID-19 10/2020 body ache, fatigue, fever, Headache Hypertension Umbilical hernia Surgical History No history of previous surgery Family History Sister Hypertension Father Diabetes Denies family history of Ovarian cancer Prostate cancer Coronary heart disease Breast cancer Colorectal cancer Social History (Updated 06/06/21 @ 09:03 by Leonarda Carpenter LPN) Smoking Status: Never smoker Tobacco Type: Cigarettes Cigarettes Per Day: a few every few months; Second Hand Exposure: Yes (); Hx Alcohol Use: Yes Alcohol type: beer Hx Substance Use: No Preferred Language: Berm[place]ian Communication Ability: Effective Visual Impairment: No Limitations Hearing Ability: Normal Life Skills Coordinator Required: No Beliefs That Will Affect Care: None marital status: Current Living Situation: Family current occupational status: employed 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 Feels Safe at Home: Yes caffeine: Yes Seatbelt Use: always Sunscreen Use: Yes Assistive Devices: Glasses Allergies Allergies Allergy/AdvReac Type Severity Reaction Status Date / Time No Known Allergies Allergy Mild Verified 07/15/21 01:02 Home Meds Home Medications Medication Instructions Recorded Confirmed multivitamin (One-A-Day Essential) 1 tab PO QAM 06/24/19 07/15/21 glimepiride 1 mg tablet 1 mg PO QAM 07/12/21 07/15/21 telmisartan 80 1 tab PO QAM 07/12/21 07/15/21 mg-hydrochlorothiazide 12.5 mg tablet bismuth subsalicylate 262 mg/15 mL 524 mg PO QID PRN 07/15/21 07/15/21 oral suspension (Pepto-Bismol) Previous Rx's Medication Instructions Recorded metformin 500 mg tablet 500 mg PO BID #180 tab 11/27/20 sodium,potassium,mag sulfates 17.5 See Rx Instructions PO .COMPLEX 06/18/21 gram-3.13 gram-1.6 gram oral soln #354 ml (Suprep Bowel Prep Kit) Results & Data (ED) Vital Signs Vital Signs - 24 hr 07/14/21 22:49 07/14/21 23:27 07/14/21 23:30 Temperature 36.5 C Temperature Source Temporal Artery Scan Pulse Rate 60 116 H Pulse Rate [Apical] Pulse Rate [Exercises] Pulse Rate [Recovery] Pulse Rhythm Regular Respiratory Rate 16 Respiratory Effort / Characteristics Non-Labored Spontaneous Respiratory Depth Normal Respiratory Pattern Blood Pressure 129/100 Blood Pressure [Left Arm] Blood Pressure Mean 109 Blood Pressure Mean [Left Arm] Blood Pressure Position Sitting Blood Pressure Position [Left Arm] Pulse Oximetry 96 94 Pulse Oximetry [Exercises] Pulse Oximetry [Recovery] Oxygen Delivery Method Room Air Room Air Room Air Sepsis Recent Fever Within 48 Hours No Sepsis New/Unexplained Change in Mental Status N/A Sepsis Action Taken by Nursing No Action Required 07/15/21 00:51 07/15/21 01:00 07/15/21 02:00 Temperature Temperature Source Pulse Rate 115 H 113 H Pulse Rate [Apical] 113 H Pulse Rate [Exercises] Pulse Rate [Recovery] Pulse Rhythm Respiratory Rate 24 24 23 Respiratory Effort / Characteristics Non-Labored Respiratory Depth Respiratory Pattern Regular Blood Pressure Blood Pressure [Left Arm] 163/99 H Blood Pressure Mean Blood Pressure Mean [Left Arm] 120 Blood Pressure Position Blood Pressure Position [Left Arm] Lying Pulse Oximetry 94 91 94 Pulse Oximetry [Exercises] Pulse Oximetry [Recovery] Oxygen Delivery Method Room Air Sepsis Recent Fever Within 48 Hours Sepsis New/Unexplained Change in Mental Status Sepsis Action Taken by Nursing 07/15/21 02:33 Temperature Temperature Source Pulse Rate Pulse Rate [Apical] Pulse Rate [Exercises] 117 H Pulse Rate [Recovery] 116 H Pulse Rhythm Respiratory Rate Respiratory Effort / Characteristics Respiratory Depth Respiratory Pattern Blood Pressure Blood Pressure [Left Arm] Blood Pressure Mean Blood Pressure Mean [Left Arm] Blood Pressure Position Blood Pressure Position [Left Arm] Pulse Oximetry Pulse Oximetry [Exercises] 91 Pulse Oximetry [Recovery] 95 Oxygen Delivery Method Room Air Sepsis Recent Fever Within 48 Hours Sepsis New/Unexplained Change in Mental Status Sepsis Action Taken by Nursing Laboratory Data Result diagrams: 07/14/21 23:22 07/14/21 23:22 Lab Results 07/14/21 07/14/21 07/14/21 Range/Units 23:22 23:22 23:22 WBC 10.53 (4.8-10.8) K/uL RBC 4.95 (4.7-6.1) M/uL Hgb 15.8 (14.0-18.0) g/dL Hct 46.0 (42-52) % MCV 92.9 (80-100) fL MCH 31.9 (25-34) pg MCHC 34.3 (32-36) g/dL RDW Std Deviation 44.9 (36.4-46.3) fL RDW Coeff of [place] 13.4 (11.5-14.5) % Plt Count 263 (130-400) K/uL MPV 10.1 (7.4-10.4) fL Immature Gran % (Auto) 0.2 % Neut % (Auto) 63.0 % Lymph % (Auto) 27.2 % [place] % (Auto) 7.6 % Eos % (Auto) 1.8 % Baso % (Auto) 0.2 % Neut # (Auto) 6.64 H (1.4-6.5) K/uL Lymph # (Auto) 2.86 (1.2-3.4) K/uL [place] # (Auto) 0.80 H (0.11-0.59) K/uL Eos # (Auto) 0.19 (0-0.5) K/uL Baso # (Auto) 0.02 (0-0.2) K/uL Immature Gran # (Auto) 0.02 (0.00-0.02) K/uL D-Dimer 500 (0-500) ug/L FEU Sodium 140 (136-145) mmol/L Potassium 3.9 (3.5-5.1) mmol/L Chloride 108 H (98-107) mmol/L Carbon Dioxide 27 (21-32) mmol/L Anion Gap 5.0 (3-11) BUN 21 H (7-18) mg/dl Creatinine 1.18 (0.6-1.4) mg/dl Est Cr Clr Drug Dosing 109.2 ml/min Est GFR ( Amer) 84.1 ml/min Est GFR (Non-Af Amer) 72.5 ml/min BUN/Creatinine Ratio 18.1 (10-20) Glucose 115 H (70-99) mg/dl Calcium 8.5 (8.5-10.1) mg/dl Total Bilirubin 0.4 (0.2-1) mg/dl AST 31 (15-37) U/L ALT 60 (12-78) U/L Alkaline Phosphatase 60 (45-117) U/L Troponin I 0.040 (0-0.045) ng/ml NT-Pro-B Natriuret Pep 1594 H (0-450) pg/ml Total Protein 6.7 (6.4-8.2) gm/dl Albumin 3.7 (3.4-5.0) gm/dl Globulin 3.0 (2.5-4.0) gm/dl Albumin/Globulin Ratio 1.2 (0.9-2) Lipase 114 (73-393) U/L COVID-19 Eval Order 07/15/21 Range/Units 02:31 WBC (4.8-10.8) K/uL RBC (4.7-6.1) M/uL Hgb (14.0-18.0) g/dL Hct (42-52) % MCV (80-100) fL MCH (25-34) pg MCHC (32-36) g/dL RDW Std Deviation (36.4-46.3) fL RDW Coeff of [place] (11.5-14.5) % Plt Count (130-400) K/uL MPV (7.4-10.4) fL Immature Gran % (Auto) % Neut % (Auto) % Lymph % (Auto) % [place] % (Auto) % Eos % (Auto) % Baso % (Auto) % Neut # (Auto) (1.4-6.5) K/uL Lymph # (Auto) (1.2-3.4) K/uL [place] # (Auto) (0.11-0.59) K/uL Eos # (Auto) (0-0.5) K/uL Baso # (Auto) (0-0.2) K/uL Immature Gran # (Auto) (0.00-0.02) K/uL D-Dimer (0-500) ug/L FEU Sodium (136-145) mmol/L Potassium (3.5-5.1) mmol/L Chloride (98-107) mmol/L Carbon Dioxide (21-32) mmol/L Anion Gap (3-11) BUN (7-18) mg/dl Creatinine (0.6-1.4) mg/dl Est Cr Clr Drug Dosing ml/min Est GFR ( Amer) ml/min Est GFR (Non-Af Amer) ml/min BUN/Creatinine Ratio (10-20) Glucose (70-99) mg/dl Calcium (8.5-10.1) mg/dl Total Bilirubin (0.2-1) mg/dl AST (15-37) U/L ALT (12-78) U/L Alkaline Phosphatase (45-117) U/L Troponin I (0-0.045) ng/ml NT-Pro-B Natriuret Pep (0-450) pg/ml Total Protein (6.4-8.2) gm/dl Albumin (3.4-5.0) gm/dl Globulin (2.5-4.0) gm/dl Albumin/Globulin Ratio (0.9-2) Lipase (73-393) U/L COVID-19 Eval Order Covid19 at [facility] Administered Medications Discontinued Medications Ioversol (Optiray 320 100ml) 95 ml IV ONCE ONE Stop: 07/15/21 00:38 Last Admin: 07/15/21 00:32 Dose: 95 ml Documented by: [id number] Discharge Plan Visit Data Chief Complaint: Chest Pain Stated Complaint: HERNIA, CHEST/RIB PRESSURE ED Provider: Ed Conteh Discharge Problem: SOB (shortness of breath), Abdominal bloating, CHF (congestive heart failure), Abnormal CT scan, gallbladder Forms Stand Alone Forms: [employer] Prescriptions Prescriptions: No Action metformin 500 mg tablet 500 mg PO BID Qty: 180 RF: 3 Suprep Bowel Prep Kit 17.5-3.13-1.6 gram recon soln See Rx Instructions PO .COMPLEX Qty: 354 RF: 0 multivitamin [One-A-Day Essential] tablet 1 tab PO QAM RF: 0 bismuth subsalicylate [Pepto-Bismol] 262 mg/15 mL Suspension 524 mg PO QID PRN (Reason: gi-upset) RF: 0 glimepiride 1 mg tablet 1 mg PO QAM RF: 0 telmisartan-hydrochlorothiazid 80-12.5 mg tablet 1 tab PO QAM RF: 0 Referrals Referrals: Demar Ruiz III, MD [Primary Care Provider] -
--- NOTE | 2021-07-15 01:54 | Emergency Department Note ---
Impression & Plan SOB (shortness of breath), Abdominal bloating, CHF (congestive heart failure) ED Provider Note INFORMANT: Patient and ED PROVIDER(S): Ed Conteh MD CHIEF COMPLAINT: Shortness of breath PLAN: Disposition: [] Condition: [Good] Outpatient prescription management: [none] Referral: [] MEDICAL DECISION MAKING: [Provider summary] Triage Nursing notes reviewed and agree them. Vital Signs: reviewed and remarkable for [no significant abnormalities] Differential diagnosis: Intra-abdominal process, reactive airway disease, pneumonia, pneumothorax, COPD, CHF, infections, cardiac ischemia, pulmonary embolism, musculoskeletal, ga strointestinal, as well as other pathologies. Diagnostics interpreted by me: ECG: Twelve-lead ECG reveals [] Cardiac Monitoring: Cardiac monitoring ordered by me: The patient was placed on continuous cardiac monitoring and observed. It revealed a sinus tachycardia at 113 beats per minute without evidence of dysrhythmia. Imaging studies: Chest x-ray reveals mild cardiomegaly and cephalization concerning for fluid overload. HPI: The patient is a 50year old male who presents to the Emergency Room with complaints of shortness of breath. This started over a week ago and is persisting. The patient also notes the following associated symptoms, abdominal bloating, some chest discomfort, dyspnea on exertion. The patient has found norelieving factors. Current pain is rated as 0/10. Patient does have a history of hypertension. He has no ossific known heart problems or pulmonary issues. Pt denies LOC, headache, fevers, chills, diaphoresis, visual changes, neck pain, nausea, vomiting, abdominal pain, back pain, melena, hematochezia, urinary symptoms, numbness, weakness, lymphadenopathy, rash, or other complaints. ROS: See above HPI for pertinent positives & negatives. A total of 10 systems reviewed and were otherwise negative. PAST MEDICAL HISTORY:See Below , hypertension, umbilical hernia PAST SURGICAL HISTORY:See Below, FAMILY HISTORY:See Below SOCIAL HISTORY:See Below, HOME MEDICATIONS:See Below ALLERGIES:See Below VITALS:See Below PHYSICAL EXAMINATION: GENERAL: Awake, alert, well-appearing, in no distress HENT: Normocephalic, atraumatic. Oropharynx unremarkable. EYES: Normal conjunctiva. Sclera non-icteric. NECK: Inspection normal. Non-tender. Supple. No nuchal rigidity. FROM. No masses. RESPIRATORY: Clear to auscultation. No wheezes. No rales. Normal respiratory effort. CARDIAC: Borderline tachycardic rate. Normal rhythm. No murmurs. No rubs. Extremities warm and well perfused. Pulses equal. No JVD. GI: Soft, mildly-distended. Minimal epigastric tenderness to palpation. No rebound or guarding. No masses. RECTAL: Deferred. MUSCULOSKELETAL: Atraumatic. Chest examination reveals no tenderness. The back is symmetrical on inspection without obvious abnormality. There is no CVA tenderness to palpation. No joint edema. LOWER EXTREMITIES: Calves are equal size bilaterally and non-tender. No edema. No discoloration. NEURO: Normal sensorium. No sensory or motor deficits noted. SKIN: No rash or jaundice noted. Ed Conteh MD Past Med/Surg History Medical History Arrhythmia "extra beat" Diabetes mellitus, type 2 History of COVID-19 10/2020 body ache, fatigue, fever, Headache Hypertension Umbilical hernia Surgical History No history of previous surgery Family History Sister Hypertension Father Diabetes Denies family history of Ovarian cancer Prostate cancer Coronary heart disease Breast cancer Colorectal cancer Social History (Updated 06/06/21 @ 09:03 by Leonarda Carpenter LPN) Smoking Status: Never smoker Tobacco Type: Cigarettes Cigarettes Per Day: a few every few months; Second Hand Exposure: Yes (); Hx Alcohol Use: Yes Alcohol type: beer Hx Substance Use: No Preferred Language: Bulgarian Communication Ability: Effective Visual Impairment: No Limitations Hearing Ability: Normal Dairy Clerk Required: No Beliefs That Will Affect Care: None marital status: Current Living Situation: Family current occupational status: employed 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 Feels Safe at Home: Yes caffeine: Yes Seatbelt Use: always Sunscreen Use: Yes Assistive Devices: Glasses Allergies Allergies Allergy/AdvReac Type Severity Reaction Status Date / Time No Known Allergies Allergy Mild Verified 07/15/21 01:02 Home Meds Home Medications Medication Instructions Recorded Confirmed multivitamin (One-A-Day Essential) 1 tab PO QAM 06/24/19 07/15/21 glimepiride 1 mg tablet 1 mg PO QAM 07/12/21 07/15/21 telmisartan 80 1 tab PO QAM 07/12/21 07/15/21 mg-hydrochlorothiazide 12.5 mg tablet bismuth subsalicylate 262 mg/15 mL 524 mg PO QID PRN 07/15/21 07/15/21 oral suspension (Pepto-Bismol) Previous Rx's Medication Instructions Recorded metformin 500 mg tablet 500 mg PO BID #180 tab 11/27/20 sodium,potassium,mag sulfates 17.5 See Rx Instructions PO .COMPLEX 06/18/21 gram-3.13 gram-1.6 gram oral soln #354 ml (Suprep Bowel Prep Kit) Results & Data (ED) Vital Signs Vital Signs - 24 hr 07/14/21 22:49 07/14/21 23:27 07/14/21 23:30 Temperature 36.5 C Temperature Source Temporal Artery Scan Pulse Rate 60 116 H Pulse Rate [Apical] Pulse Rhythm Regular Respiratory Rate 16 Respiratory Effort / Characteristics Non-Labored Spontaneous Respiratory Depth Normal Respiratory Pattern Blood Pressure 129/100 Blood Pressure [Left Arm] Blood Pressure Mean 109 Blood Pressure Mean [Left Arm] Blood Pressure Position Sitting Blood Pressure Position [Left Arm] Pulse Oximetry 96 94 Oxygen Delivery Method Room Air Room Air Room Air Sepsis Recent Fever Within 48 Hours No Sepsis New/Unexplained Change in Mental Status N/A Sepsis Action Taken by Nursing No Action Required 07/15/21 00:51 Temperature Temperature Source Pulse Rate Pulse Rate [Apical] 113 H Pulse Rhythm Respiratory Rate 24 Respiratory Effort / Characteristics Non-Labored Respiratory Depth Respiratory Pattern Regular Blood Pressure Blood Pressure [Left Arm] 163/99 H Blood Pressure Mean Blood Pressure Mean [Left Arm] 120 Blood Pressure Position Blood Pressure Position [Left Arm] Lying Pulse Oximetry 94 Oxygen Delivery Method Room Air Sepsis Recent Fever Within 48 Hours Sepsis New/Unexplained Change in Mental Status Sepsis Action Taken by Nursing Laboratory Data Result diagrams: 07/14/21 23:22 07/14/21 23:22 Lab Results 07/14/21 07/14/21 07/14/21 Range/Units 23:22 23:22 23:22 WBC 10.53 (4.8-10.8) K/uL RBC 4.95 (4.7-6.1) M/uL Hgb 15.8 (14.0-18.0) g/dL Hct 46.0 (42-52) % MCV 92.9 (80-100) fL MCH 31.9 (25-34) pg MCHC 34.3 (32-36) g/dL RDW Std Deviation 44.9 (36.4-46.3) fL RDW Coeff of Oseas 13.4 (11.5-14.5) % Plt Count 263 (130-400) K/uL MPV 10.1 (7.4-10.4) fL Immature Gran % (Auto) 0.2 % Neut % (Auto) 63.0 % Lymph % (Auto) 27.2 % Graves % (Auto) 7.6 % Eos % (Auto) 1.8 % Baso % (Auto) 0.2 % Neut # (Auto) 6.64 H (1.4-6.5) K/uL Lymph # (Auto) 2.86 (1.2-3.4) K/uL Graves # (Auto) 0.80 H (0.11-0.59) K/uL Eos # (Auto) 0.19 (0-0.5) K/uL Baso # (Auto) 0.02 (0-0.2) K/uL Immature Gran # (Auto) 0.02 (0.00-0.02) K/uL D-Dimer 500 (0-500) ug/L FEU Sodium 140 (136-145) mmol/L Potassium 3.9 (3.5-5.1) mmol/L Chloride 108 H (98-107) mmol/L Carbon Dioxide 27 (21-32) mmol/L Anion Gap 5.0 (3-11) BUN 21 H (7-18) mg/dl Creatinine 1.18 (0.6-1.4) mg/dl Est Cr Clr Drug Dosing 109.2 ml/min Est GFR ( Amer) 84.1 ml/min Est GFR (Non-Af Amer) 72.5 ml/min BUN/Creatinine Ratio 18.1 (10-20) Glucose 115 H (70-99) mg/dl Calcium 8.5 (8.5-10.1) mg/dl Total Bilirubin 0.4 (0.2-1) mg/dl AST 31 (15-37) U/L ALT 60 (12-78) U/L Alkaline Phosphatase 60 (45-117) U/L Troponin I 0.040 (0-0.045) ng/ml NT-Pro-B Natriuret Pep 1594 H (0-450) pg/ml Total Protein 6.7 (6.4-8.2) gm/dl Albumin 3.7 (3.4-5.0) gm/dl Globulin 3.0 (2.5-4.0) gm/dl Albumin/Globulin Ratio 1.2 (0.9-2) Lipase 114 (73-393) U/L Administered Medications Discontinued Medications Ioversol (Optiray 320 100ml) 95 ml IV ONCE ONE Stop: 07/15/21 00:38 Last Admin: 07/15/21 00:32 Dose: 95 ml Documented by: [id number] Discharge Plan Visit Data Chief Complaint: Chest Pain Stated Complaint: HERNIA, CHEST/RIB PRESSURE ED Provider: Ed Conteh Discharge Problem: SOB (shortness of breath), Abdominal bloating, CHF (congestive heart failure) Forms Stand Alone Forms: My [facility] [email or web address] Prescriptions Prescriptions: No Action metformin 500 mg tablet 500 mg PO BID Qty: 180 RF: 3 Suprep Bowel Prep Kit 17.5-3.13-1.6 gram recon soln See Rx Instructions PO .COMPLEX Qty: 354 RF: 0 multivitamin [One-A-Day Essential] tablet 1 tab PO QAM RF: 0 bismuth subsalicylate [Pepto-Bismol] 262 mg/15 mL Suspension 524 mg PO QID PRN (Reason: gi-upset) RF: 0 glimepiride 1 mg tablet 1 mg PO QAM RF: 0 telmisartan-hydrochlorothiazid 80-12.5 mg tablet 1 tab PO QAM RF: 0 Referrals Referrals: Demar Ruiz III, MD [Primary Care Provider] -
--- NOTE | 2021-07-15 03:23 | History & Physical Report ---
Date of Service July 15, 2021 Assessment & Plan (1) Abnormal CT scan, gallbladder: Plan: Gallbladder wall thickening and distention/abdominal bloating- Examination and CT scan imaging are concerning for possible acute cholecystitis. Ultrasound of right upper quadrant of the abdomen is pending Would likely need a HIDA scan to further clarify NPO except essential medications Famotidine 20 mg IV every 12 hours Zofran 4 mg IV every 6 hours as needed Acetaminophen 650 mg p.o. every 6 hours as needed mild pain or fever (2) Abdominal bloating: Plan: Fairly significant abdominal bloating- No ascites noted on CT In part likely related to aerophagia (3) SOB (shortness of breath): Plan: Chest x-ray and possibly show some pulmonary vascular congestion versus artifact from large body habitus CT scan suggestive of acute bronchitis, for which will place on DuoNebs every 2 hours as needed Patient has difficulty relating the timeline of his symptoms of abdominal bloating and nausea versus development of shortness of breath. The patient will be admitted to telemetry for serial cardiac enzymes, serial EKG's, cardiac rhythm monitoring and a 2-D echocardiogram with Dopplers. Follow laboratories and clinical course (4) HTN (hypertension): Plan: Hold telmisartan/HCTZ Lopressor 5 mg IV every 4 hours as needed systolic blood pressure greater than 150 (5) Diabetes type 2, controlled: Plan: Hold glimepiride and Metformin- Placed on Accu-Cheks before meals and at bedtime NovoLog coverage per scale Check hemoglobin A1c History of Present Illness Chief Complaint: The patient presents to the emergency department with complaint of abdominal bloating and distention, nausea, chest discomfort when trying to take a deep breath, and shortness of breath when lying backwards. Primary Care Provider: Demar Ruiz MD The patient is a 50-year-old male with a past medical history including diabetes mellitus, hypertension and obesity. He presents with a combination of symptoms of abdominal bloating and distention, nausea, shortness of breath, with symptoms worsening when he is supine. Symptoms have been going on for about 6 days, and is here in the ED at the request of his . Abnormal laboratories: WBC 10.53, glucose 115, BNP 1594. CT scan of abdomen and pelvis with contrast: Mildly distended gallbladder with gallbladder wall thickening, consider right upper quadrant ultrasound to assess for possible acute cholecystitis. Multiple hypodensities in the liver. Small bilateral pleural effusions. Mild peribronchial thickening which may be related to acute bronchitis or reactive airways disease. Nonspecific enlarged right hilar lymph node measuring 2 cm. Pulse ox at rest is 95%, and with exercise is 91% Allergies Allergy/AdvReac Type Severity Reaction Status Date / Time No Known Allergies Allergy Mild Verified 07/15/21 01:02 Home Medications Medication Instructions Recorded Confirmed Type multivitamin (One-A-Day Essential) 1 tab PO QAM 06/24/19 07/15/21 History metformin 500 mg tablet 500 mg PO BID #180 tab 11/27/20 07/15/21 Rx sodium,potassium,mag sulfates 17.5 See Rx Instructions PO .COMPLEX 06/18/21 07/15/21 Rx gram-3.13 gram-1.6 gram oral soln #354 ml (Suprep Bowel Prep Kit) glimepiride 1 mg tablet 1 mg PO QAM 07/12/21 07/15/21 History telmisartan 80 1 tab PO QAM 07/12/21 07/15/21 History mg-hydrochlorothiazide 12.5 mg tablet bismuth subsalicylate 262 mg/15 mL 524 mg PO QID PRN 07/15/21 07/15/21 History oral suspension (Pepto-Bismol) Past Med/Surg History Medical History (Updated 07/15/21 @ 04:30 by Carlos Merino MD) Arrhythmia "extra beat" Diabetes mellitus, type 2 History of COVID-19 10/2020 body ache, fatigue, fever, Headache Hypertension Umbilical hernia Surgical History No history of previous surgery Family History Sister Hypertension Father Diabetes Denies family history of Ovarian cancer Prostate cancer Coronary heart disease Breast cancer Colorectal cancer Social History (Updated 06/06/21 @ 09:03 by Leonarda Carpenter LPN) Smoking Status: Never smoker Tobacco Type: Cigarettes Cigarettes Per Day: a few every few months; Second Hand Exposure: Yes (); Hx Alcohol Use: Yes Alcohol type: beer Hx Substance Use: No Preferred Language: Citizen Of [place] Communication Ability: Effective Visual Impairment: No Limitations Hearing Ability: Normal Application Chemist Required: No Beliefs That Will Affect Care: None marital status: Current Living Situation: Family current occupational status: employed 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 Feels Safe at Home: Yes caffeine: Yes Seatbelt Use: always Sunscreen Use: Yes Assistive Devices: Glasses Review of Systems Review of Systems: The patient denies chest pain, palpitations, cough, lower extremity swelling, sore throat, fevers, chills, sweats, vomiting, diarrhea , constipation, pelvic pain, blood in urine or stool, dysuria, urinary frequency or urgency, lightheadedness, dizziness, headache, memory loss, loss of consciousness, rash, abnormal bruising or bleeding, imbalance, focal or generalized weakness, numbness or tingling in arms or legs, generalized arthralgias or myalgias, back or neck pain, or night sweats. The review of systems is otherwise negative other than for that already noted above, and at least 10 systems have been reviewed. Physical Exam Physical Exam: The patient is awake, alert and oriented 3, well developed and well nourished, normocephalic and atraumatic, lying in bed and in no acute distress. HEENT--PERRL, EOMI, mucous membranes and oropharynx dry. Neck--supple. No JVD. No bruits. Thyroid normal, trachea midline, no adenopathy. Heart--normal S1 and S2. No murmurs, rubs or gallops. Lungs--clear bilaterally, no respiratory distress, no accessory muscle use. Abdomen--normal bowel sounds and soft. Moderately distended and tympanitic. Nontender Extremities--no cyanosis or clubbing. No edema. Dermatologic--normal skin turgor, normal color, no abnormal lymph nodes, no rash. Neurologic--cranial nerves II through XII grossly intact. Rheumatologic--normal range of motion. Psychiatric--normal affect. Results & Data Results & Data ([facility]) Vital Signs (Past 12 Hours) Vital Signs Temp Pulse Pulse Pulse Pulse Resp BP 07/15/21 02:33 117 H 116 H 07/15/21 02:00 113 H 23 07/15/21 01:00 115 H 24 07/15/21 00:51 113 H 24 07/14/21 23:27 116 H 07/14/21 22:49 97.7 F 60 16 129/100 BP Pulse Ox Pulse Ox Pulse Ox 07/15/21 02:33 91 95 07/15/21 02:00 94 07/15/21 01:00 91 07/15/21 00:51 163/99 H 94 07/14/21 23:27 94 07/14/21 22:49 96 Laboratory Results Laboratory Results WBC 10.53 K/uL (4.8-10.8) 07/14/21 23:22 RBC 4.95 M/uL (4.7-6.1) 07/14/21 23:22 Hgb 15.8 g/dL (14.0-18.0) 07/14/21 23:22 Hct 46.0 % (42-52) 07/14/21 23:22 MCV 92.9 fL (80-100) 07/14/21 23:22 MCH 31.9 pg (25-34) 07/14/21 23: MCHC 34.3 g/dL (32-36) 07/14/21 23:22 RDW Std Deviation 44.9 fL (36.4-46.3) 07/14/21 23:22 RDW Coeff of Oseas 13.4 % (11.5-14.5) 07/14/21 23:22 Plt Count 263 K/uL (130-400) 07/14/21 23:22 MPV 10.1 fL (7.4-10.4) 07/14/21 23:22 Immature Gran % (Auto) 0.2 % 07/14/21 23:22 Neut % (Auto) 63.0 % 07/14/21 23:22 Lymph % (Auto) 27.2 % 07/14/21 23:22 [place] % (Auto) 7.6 % 07/14/21 23:22 Eos % (Auto) 1.8 % 07/14/21 23:22 Baso % (Auto) 0.2 % 07/14/21 23:22 Neut # (Auto) 6.64 K/uL (1.4-6.5) H 07/14/21 23:22 Lymph # (Auto) 2.86 K/uL (1.2-3.4) 07/14/21 23:22 [place]aney # (Auto) 0.80 K/uL (0.11-0.59) H 07/14/21 23:22 Eos # (Auto) 0.19 K/uL (0-0.5) 07/14/21 23:22 Baso # (Auto) 0.02 K/uL (0-0.2) 07/14/21 23:22 Immature Gran # (Auto) 0.02 K/uL (0.00-0.02) 07/14/21 23:22 D-Dimer 500 ug/L FEU (0-500) 07/14/21 23:22 Sodium 140 mmol/L (136-145) 07/14/21 23:22 Potassium 3.9 mmol/L (3.5-5.1) 07/14/21 23:22 Chloride 108 mmol/L (98-107) H 07/14/21 23:22 Carbon Dioxide 27 mmol/L (21-32) 07/14/21 23:22 Anion Gap 5.0 (3-11) 07/14/21 23:22 BUN 21 mg/dl (7-18) H 07/14/21 23:22 Creatinine 1.18 mg/dl (0.6-1.4) 07/14/21 23:22 Est Cr Clr Drug Dosing 109.2 ml/min 07/14/21 23:22 Est GFR ( Amer) 84.1 ml/min 07/14/21 23:22 Est GFR (Non-Af Amer) 72.5 ml/min 07/14/21 23:22 BUN/Creatinine Ratio 18.1 (10-20) 07/14/21 23:22 Glucose 115 mg/dl (70-99) H 07/14/21 23:22 Calcium 8.5 mg/dl (8.5-10.1) 07/14/21 23:22 Total Bilirubin 0.4 mg/dl (0.2-1) 07/14/21 23:22 AST 31 U/L (15-37) 07/14/21 23:22 ALT 60 U/L (12-78) 07/14/21 23:22 Alkaline Phosphatase 60 U/L (45-117) 07/14/21 23:22 Troponin I 0.040 ng/ml (0-0.045) 07/14/21 23:22 NT-Pro-B Natriuret Pep 1594 pg/ml (0-450) H 07/14/21 23:22 Total Protein 6.7 gm/dl (6.4-8.2) 07/14/21 23:22 Albumin 3.7 gm/dl (3.4-5.0) 07/14/21 23:22 Globulin 3.0 gm/dl (2.5-4.0) 07/14/21 23:22 Albumin/Globulin Ratio 1.2 (0.9-2) 07/14/21 23:22 Lipase 114 U/L (73-393) 07/14/21 23:22 COVID-19 Eval Order Covid19 at [facility] 07/15/21 02:31 SARS-CoV-2 (PCR) NEGATIVE (Negative) 07/15/21 02:31 Diagnostic Findings [facility] Patient: LIZ ASCENCIO (Male) : 74 Status: ER Date: 07/15/21 00:53 Room #: History: DIFFUSE ABD PAIN AND BLOATING , SOB , 95 ML OPTIRAY 320, APPENDIX PRESENT Slices: [phone] Priors: Tech: Yobani Thomas @ [id number] Exams: CT ABDOMEN & PELVIS With Contrast Contrast: IV Amt: 95 ML Accession Numbers: [id number] Referring Physician: TROY URBANO Preliminary Findings Only See Final Report For Complete Findings CT ABDOMEN & PELVIS With Contrast: Mildly distended gallbladder with gallbladder wall thickening. No evidence of cholelithiasis. Consider right upper quadrant ultrasound to evaluate for acute cholecystitis. 1.8 cm simple fluid density cyst in the left hepatic lobe. Multiple additional subcentimeter hepatic hypodensities, too small to characterize. No evidence of bowel obstruction or perforation. Normal appendix. Small bilateral pleural effusions. Mild bilateral peribronchial thickening which may be related to acute bronchitis or reactive airways disease. No pulmonary consolidation. Mild patchy groundglass opacities in lung bases appear related to motion artifact. Nonspecific enlarged right hilar lymph node measuring 2 cm (image 25 series 3) Radiologist: Mechelle Benz M.D. Study ready at 00:57 and initial results transmitted at 02:02 *This report constitutes a preliminary interpretation only. Non-acute findings felt to be unrelated to the clinical presentation may not be discussed in this report. The study will be interpreted and a final report will be generated by the local Radiologist the following shift. To reach the [facility] radiology department call [phone]. If a discrepancy is found between the preliminary and final interpretations of this study, please notify us via our Client Portal at [email or web address], under QA Exams. You can also fax this report with a description of the discrepancy, or include the final report, to our daytime fax number [phone]. If faxing, please indicate the severity of discrepancy using one of the following categories: [ ] 1 - Agree/Informational [ ] 2 - Unlikely to Affect Management [ ] 3 - Possible Eventual Change of Management [ ] 4 - Probable Immediate Change of Management For all other patient related information, please fax us at [phone]. [id number] Code Status & VTE Plan Code Status Full code VTE Prophylaxis Plan VTE Prophylaxis will be ordered: Yes PG Care Time/CCT Total # of Minutes Spent Total Time Spent with Patient: Total time spent is greater than 50% in coordination of care (as documented) at patient's floor/unit and/or counseling patient: Coding Level of Care Code INT OBSERVATION CARE 70M LVL [address] scan, gallbladder R93.2 Abdominal bloating R14.0 HTN (hypertension) I10 Diabetes type 2, controlled E11.9 SOB (shortness of breath) R06.02
[2021-07-15] MEDS ORDERED: METOPROLOL TARTRATE 1 MG/ML VIAL IV PRN (04:34)
[2021-07-15] MEDS ORDERED: ALBUT/IPRATROP 3MG/0.5MG NEB 3 ML VIAL NEB PRN (04:37)
[2021-07-15] MEDS ORDERED: ONDANSETRON INJ 2 MG/ML 2 ML VIAL IV PRN (04:51)
--- NOTE | 2021-07-15 07:19 | XRay Report ---
XR chest 1V portable CLINICAL HISTORY: Chest Pain. COMPARISON STUDY: 04/21/2017 TECHNIQUE: 1 view of the chest FINDINGS: Single frontal view of the chest demonstrates the cardiomediastinal silhouette to be within normal li mits. Patchy interstitial and alveolar opacities are present bilaterally. The findings are most evaristo cteristic of a viral type pneumonitis. Covid 19 pneumonia should be excluded. Diffuse interstitial ed osvaldo would be less likely. There is no evidence for pleural effusion. There is no evidence for vascula r congestion. There is no acute osseous pathology. IMPRESSION: Patchy interstitial and alveolar opacities bilaterally characteristic of a viral type pne umonitis and probable Covid 19 pneumonia. Diffuse interstitial edema would be less likely. ACT 112: Negative or not required by law. Electronically signed by: Garrick Cordoba M.D. 07/15/2021 7:17 AM
--- NOTE | 2021-07-15 08:03 | CT Scan Report ---
CT abd pelvis IV con only CLINICAL HISTORY: upper abd pain and bloating COMPARISON STUDY: No previous studies for comparison. CT DOSE: 1448.18 mGy.cm TECHNIQUE: Standard CT of the Abdomen and Pelvis was performed with IV contrast. A dose lowering dony hnique was utilized adhering to the principles of ALARA. Contrast Volume: Optiray 320, 95 ml. The patient did not receive oral contrast. FINDINGS: Lung base: There are small bilateral pleural effusions, right greater than left with mild bibasilar a telectasis, right greater than left. Heart size is mildly enlarged. Abdominal cavity: There is no evidence for abdominal mass, adenopathy or ascites. Liver: There is homogeneous attenuation of the liver parenchyma. There is no evidence for enhancing m ass lesion. There is evidence for sharply defined hepatic cysts. Spleen: There is homogeneous attenuation of the splenic parenchyma. There is no enhancing mass lesion . Pancreas: There is homogeneous attenuation of the pancreatic parenchyma. There is no evidence for mas s lesion or peripancreatic fluid collection. Gall Bladder: The gallbladder is distended with evidence for pericholecystic edema. No calculi are se en by CT. Findings are suspicious for early acute cholecystitis and follow-up ultrasound is recommend ed. Adrenal glands: The adrenal glands are normal in size and attenuation. There is no evidence for enhan cing mass lesion. Kidneys: There is homogeneous attenuation of the renal parenchyma bilaterally. There is no evidence f or renal calculus or hydronephrosis. There is no evidence for enhancing mass. Bowel: The bowel loops are normally placed within the abdomen and pelvis. There is no evidence for ma ss lesion. There are no inflammatory changes present. There is no evidence for free air. There is a n ormal appendix in the right lower quadrant. Bladder: The bladder is within normal limits with no evidence for focal mass, calculus or diverticulu m. : There is no evidence for pelvic mass or adenopathy. There is no evidence for pelvic ascites. Vasculature: There is no evidence for aneurysmal dilatation of the abdominal aorta. Osseous structures: There is no acute osseous pathology. IMPRESSION: 1. CT findings suspicious for early acute cholecystitis. Gallbladder ultrasound is recommended for fu rther evaluation. 2. Small bilateral pleural effusions, right greater than left with mild bibasal atelectasis, right gr eater than left. 3. Additional nonacute findings as delineated above ACT 112: Negative or not required by law. Electronically signed by: Garrick Cordoba M.D. 07/15/2021 8:02 AM
--- NOTE | 2021-07-15 08:12 | Ultrasound Report ---
US gallbladder LIMITED ABDOMEN CLINICAL HISTORY: abnormal CT, upper abd pain. Evaluate for cholecystitis. COMPARISON: CT of the abdomen and pelvis from 07/15/2021 TECHNIQUE: Multiple grayscale and color images of the right upper quadrant of the abdomen. FINDINGS: The study is limited by overlying bowel gas. Pancreas: The pancreas cannot be visualized. Liver: The liver is homogeneous in echogenicity There is no evidence for a focal mass. There is no in trahepatic biliary duct dilatation. Liver is enlarged measuring 20 cm in greatest length. Gallbladder: Compared to the CT examination, there is diffuse gallbladder wall thickening with no de finite pericholecystic edema. There is no evidence for cholelithiasis. There was reported to be a neg ative sonographic Joy sign. Common Bile Duct: (CBD): It is normal in size measuring 4 mm. Inferior Vena Cava (IVC): The imaged IVC is patent. Right kidney: There is no evidence for hydronephrosis, calculus or gross renal mass. The kidney is n ormal in size. IMPRESSION: Ultrasound demonstrates the presence of gallbladder wall thickening with no evidence for pericholecystic edema or cholelithiasis. Negative sonographic Joy sign. Early acute cholecystitis cannot be completely excluded and follow-up hepatobiliary scan is recommended. ACT 112: Negative or not required by law. Electronically signed by: Garrick Cordoba M.D. 07/15/2021 8:11 AM
[2021-07-15] MEDS ORDERED: FUROSEMIDE INJ 20 MG/2 ML VIAL IV ONE (08:56)
[2021-07-15] MEDS ORDERED: CARBOHYDRATES FOR HYPOGLYCEMIA PO PRN (08:58)
[2021-07-15] MEDS ORDERED: GLUCAGON FOR INJ 1 MG VIAL SQ PRN (08:58)
[2021-07-15] MEDS ORDERED: GLUCOSE 10 TABS/TUBE PO PRN (08:58)
[2021-07-15] MEDS ORDERED: DEXTROSE 50% 50 ML SYRINGE IV PRN (08:58)
[2021-07-15] MEDS ORDERED: GLUCOSE 40% GEL 15 GM TUBE PO PRN (08:58)
[2021-07-15] MEDS ORDERED: METOPROLOL TARTRATE 25 MG TAB PO SCH (09:00)
[2021-07-15 09:07] LABS: Troponin I 0.049 ng/ml (0-0.045)
[2021-07-15] MEDS ORDERED: FUROSEMIDE 40 MG/4 ML VIAL IV ONE (09:08)
--- NOTE | 2021-07-15 09:17 | Hospitalist Progress Note ---
Date of Service July 15, 2021 Assessment & Plan (1) SOB (shortness of breath): Plan: - Patient presented with abd bloating and cardiac awareness and AWAN x weeks that has since progressed into SOB at rest with mild orthopnea. Denies cough, PND or chest pain - clinically, appears to be somewhat volume overloaded (initially thought to be rate related; however, verbal report from cardiology that EF "very low"-- echo done/report pending) - CXR:Patchy interstitial densities/opacities that likely reflect developing covid-19 vs insterstitial edema-- favoring the latter - Rx: Lasix 40mg IV now with reassesment and likely FU dosing - consult cardiology. Briefly discussed with cards who recommends holding off on BB today given risk of decompensation as poor EF is likely what is driving his sinus tachycardia (rather than the sinus tachycardia driving the fluid overload) - add topical paste for preload reduction - monitor I&O and daily weights--> goal fluid balance is -1L (2) Elevated troponin: Plan: - ? NSTEMI vs rate related ischemia - empirically start lovenox/ASA - add topical nitropaste - cycle troponin (until it peaks) and obtain lipid panel for risk stratification - trend EKG - TX--> PCU. PAtient is currently HD stable but would prefer higher level of care until this is further sorted - newly found cardiomyopathy-- ? ischemic vs nonischemic. - suspect will need cardiac cath (given the poor EF) prior to D/C-- once fluid status optimized (3) LV dysfunction: Plan: - no formal Echo report available but verbal report from cardiology that patient with low EF - now with uptrending troponin - ischemic vs nonischemic cardiomyopathy?--> will need cardiac cath once fluid status optimized - patient denies etoh abuse - once safe to do so, will need addition of BB. ? need for life-vest - again, cardiology consulted--> appreciate recomendations (4) Sinus tachycardia: Plan: - likely compensatory given CHF but also could be driving further fluid retention - hold on BB for now and focus on diuresis - will need addition of BB for poor EF but hold for now as outlined above. Cards consulted-- appreciate recommendations - check TSH and Mag (5) Abdominal bloating: Plan: - seems fluid overloaded Plan: - will continue to follow Admission and Anticipated Discharge Date Admission Date: July 15, 2021 Subjective Patient seen on daily rounds today. Admitted in the overnight hours. Presented with ongoing cardiac awareness and abdominal bloating which then progressed into SOB, orthopnea and further abd bloating. palpitations wax and wane. Does admit to significant caffeine intake (6, 16 oz bottles/day) which he is trying to cut back on. DENIES ETOH use (reports that he drinks "maybe 1 6-pack/2 weeks). Has been in a sinus tachycardia with frequent PAC's sinus admission (HR 114- 130's). Lab data initially unremarkable. Ddimer equivocal. CT of the A/P donw showing distended GB and wall thickening. RUQ US showing GB wall thickening without pericholecystic fluid and no evidence of acute cholecystitis. Currently, he is c/o cardiac awareness but denies CP. If feeling somewhat SOB but is not hypoxic. BP stable at 138/91. Notified that second troponin is uptrending (was negative at 0.040 on admission and is now slightly elevated at 0.049) and verbal report from cardiology that EF significantly low. Review of Systems Review of Systems: All systems reviewed and are unremarkable except as noted in HPI and below Denies fevers, chills, headache, nasal congestion, sore throat, cough, chest pain, abdominal pain, nausea, vomiting, diarrhea, constipation, dysuria, hematuria, frequency, back pain, joint pain or swelling, easy bruising or bleeding, skin lesions or rashes. Physical Exam Physical Exam: General: Resting comfortably in his hospital bed. Mildly dyspneic but breathing nonlabored. HEENT: Head is AT/NC buccal mucosa is moist and pink Neck: difficult to assess but appears to potentially have mild JVD with + HJR Cardiac: at the time of evaluation, he was in a regular rhythm but tachycardic. appears to have a 2/6 murmur but difficult to assess as HR was ~120-130 Lungs: slightly conversational dyspnea but breathing nonlabored. no accessory muscle use with faint bibasilar crackles Abdomen:abdominal bloating/distention. abd firm but NT to palpation. No RUQ ten derness. negative Joy's sign Extremities: trace pitting edema of the b/l LE Neuro: A&O X4 cranial nerves II through XII are grossly intact no focal neuro deficits Skin: No obvious skin lesions or rashes Psych: Appropriate affect pleasant and cooperative Results & Data Results & Data ([facility]) Vital Signs (Past 12 Hours) Vital Signs Temp Pulse Pulse Pulse Pulse Resp BP 07/15/21 07:45 36.8 C 114 H 18 07/15/21 06:27 36.4 C L 121 H 20 07/15/21 06:20 117 H 07/15/21 04:51 36.4 C L 121 H 20 07/15/21 04:00 115 H 22 07/15/21 03:49 117 H 20 07/15/21 02:33 117 H 116 H 07/15/21 02:00 113 H 23 07/15/21 01:00 115 H 24 07/15/21 00:51 113 H 24 07/14/21 23:27 116 H 07/14/21 22:49 36.5 C 60 16 129/100 BP Pulse Ox Pulse Ox Pulse Ox 07/15/21 07:45 138/91 93 07/15/21 06:27 143/89 H 93 07/15/21 06:20 07/15/21 04:51 143/89 H 93 07/15/21 04:00 90 07/15/21 03:49 150/83 H 93 07/15/21 02:33 91 95 07/15/21 02:00 94 07/15/21 01:00 91 07/15/21 00:51 163/99 H 94 07/14/21 23:27 94 07/14/21 22:49 96 Laboratory Results 07/14/21 23:22 07/14/21 23:22 PG Care Time/CCT Total # of Minutes Spent Total Time Spent with Patient: Total time spent is greater than 50% in coordination of care (as documented) at patient's floor/unit and/or counseling patient: Coding Level of Care Code None Diagnoses SOB (shortness of breath) R06.02 Abdominal bloating R14.0 Elevated troponin R77.8 LV dysfunction I51.9 Sinus tachycardia R00.0
[2021-07-15] MEDS ORDERED: LEVALBUTEROL HCL 0.63 MG/3 ML NEB NEB PRN (09:18)
--- NOTE | 2021-07-15 09:31 | XCELERA ---
[id number]
[2021-07-15] MEDS: ENOXAPARIN 150 MG/ML SYR SQ SCH ×2 (09:59→20:17)
[2021-07-15] MEDS: ASPIRIN 81 MG ECTAB PO SCH (09:59)
[2021-07-15 10:02] LABS: Magnesium 2.4 mg/dl (1.8-2.4)
[2021-07-15] MEDS ORDERED: OPTIRAY 320 125ml IV ONE (10:38)
--- NOTE | 2021-07-15 11:16 | CT Scan Report ---
CT angio chest PE protocol CLINICAL HISTORY: r/o PE TECHNIQUE: Multidetector row helical CT of the chest was performed. Coronal and sagittal reformations were obtained. Automated dose lowering techniques and/or adjustment according to patient size were u tilized for this exam. Comparison: None available at the time of this dictation. FINDINGS: Lungs and pleura: Small bilateral pleural effusions are seen. Diffuse emphysematous changes are seen. Heart and pericardium: Cardiomegaly is seen with biatrial enlargement. Reflux of contrast into the in ferior vena cava is noted. Vessels: No evidence of pulmonary embolism. Pulmonary trunk measures 33 mm in diameter. Mediastinum and george: Subcentimeter lymph nodes are seen. Chest wall and lower neck: Unremarkable. Abdomen: Scattered hypodensities are seen in the liver which are too small to characterize but favore d to represent cysts. Bones: Unremarkable. IMPRESSION: 1. No evidence of pulmonary embolism. 2. Small bilateral pleural effusions. 3. Cardiomegaly with heart failure and pulmonary hypertension. ACT 112: Negative or not required by law. Electronically signed by: Paxton Conner M.D. 07/15/2021 11:15 AM
[2021-07-15] MEDS: INSULIN ASPART 100 UNITS/ML 3 ML PEN SC SCH ×3 (12:11→20:16)
[2021-07-15] MEDS ORDERED: LEVALBUTEROL HCL 0.63 MG/3 ML NEB NEB SCH (13:00)
--- NOTE | 2021-07-15 13:19 | Cardiology Consultation ---
Date of Consultation July 15, 2021 Assessment & Plan (1) Acute HFrEF (heart failure with reduced ejection fraction): (2) Cardiomyopathy: (3) Mitral regurgitation: (4) Tricuspid regurgitation: (5) Pulmonary hypertension: (6) Elevated troponin: (7) HTN (hypertension): ASSESSMENT/PLAN: 1. Acute heart failure with reduced EF: He appears hypervolemic. Presentation consistent with CHF and found to have severely reduced LV systolic function. He was given IV Lasix 40 mg this morning. Would try to achieve 1-2 L negative, and may require repeat dosing later today. Would hold off on starting beta-william today. Would plan for evidence based beta-william and Entresto, as well as likely spironolactone. Low-sodium diet. Strict I&Os. Daily weights. Heart failure program. 2. Cardiomyopathy: Etiology not yet identified. Recommend ischemic evaluation given history of diabetes and hypertension. Cardiac catheterization, including risks and benefits were discussed with him. Would not pursue today as there is no urgency. Would try to optimize his fluid status first and would anticipate doing so later this hospitalization. If no improvement in LV systolic function on optimal therapy, would consider ICD for primary prevention in the future. Plan and diagnosis discussed with him and also his via telephone. 3. Mitral and tricuspid regurgitation: MR likely functional. Will monitor over time. Will likely repeat transthoracic echo after some medical therapy and diuresis. 4. Pulmonary hypertension: Likely due to hypervolemia from CHF. Will continue to monitor. 5. Elevated troponin: Troponin is not sufficiently elevated to rule in for myocardial infarction, but has not yet peaked. Could be due to CHF exacerbation, but did present with abdominal/chest pressure. On low-molecular weight heparin as per primary service. Cardiac catheterization as above at some point as noted. 6. Hypertension: Blood pressure adequately controlled. 7. Disposition: Cardiology will continue to follow. Patient care discussed with primary hospitalist team, Sarita Bernal. Patient's was updated via telephone as per patient request. Any questions were answered. Highly complex medical issues. Thank you for allowing me to participate in the care of your patient. Please call for any other questions or concerns. Sincerely, Natalio Michel M.D. History of Present Illness Reason for Consultation: "Tachycardia,LVD, mildly elevated trop" Requesting Physician: Paxton Cote DO Attending Physician: Paxton Cote DO History of Present Illness Mr. Zarate is a very pleasant 50-year-old gentleman with a history significant for type 2 diabetes and hypertension. He was hospitalized on 07/14/2021 after presenting with shortness of breath, abdominal bloating, and abdominal/chest discomfort. Initially, providers were concerned about cholecystitis. He underwent echocardiogram which demonstrated severely dilated LV with severely reduced systolic function. He also had RV systolic dysfunction and mitral and tricuspid regurgitation. He has been tachycardic. He stated that for the past week or so he has been short of breath, including orthopnea and paroxysmal nocturnal dyspnea. He has been experiencing abdominal and lower chest pressure that can last anywhere from a minute to 30 minutes in duration, and then would spontaneously resolved. The discomfort occurred at rest without identifiable trigger. He has noted increased abdominal bloating. He does not add salt to food but does not necessarily try to maintain a low- sodium diet. He denies edema. He also denies syncope, near-syncope, palpitations, or bleeding such as melena, hematochezia, or hematuria. He denies any recent viral type illness. He denies having a cardiac history in the past. He was given Lasix 40 mg IV x1 this morning. He was pain-free at the time of our visit today. Review of systems: As above. Review of systems otherwise negative/unremarkable. Family history: No known premature CAD. Social history: Smokes 2 cigarettes every 2 months or so but no regular habit. He consumes alcohol occasionally on the weekends anywhere from 6-12 beers on weekends only, and not every weekend. He denies drug abuse. Lives at home with his . He has a stepson and 2 grandchildren. 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 He was unaccompanied during our visit. Allergies Allergy/AdvReac Type Severity Reaction Status Date / Time No Known Allergies Allergy Mild Verified 07/15/21 01:02 Home Medications Medication Instructions Recorded Confirmed Type multivitamin (One-A-Day Essential) 1 tab PO QAM 06/24/19 07/15/21 History metformin 500 mg tablet 500 mg PO BID #180 tab 11/27/20 07/15/21 Rx sodium,potassium,mag sulfates 17.5 See Rx Instructions PO .COMPLEX 06/18/21 07/15/21 Rx gram-3.13 gram-1.6 gram oral soln #354 ml (Suprep Bowel Prep Kit) glimepiride 1 mg tablet 1 mg PO QAM 07/12/21 07/15/21 History telmisartan 80 1 tab PO QAM 07/12/21 07/15/21 History mg-hydrochlorothiazide 12.5 mg tablet bismuth subsalicylate 262 mg/15 mL 524 mg PO QID PRN 07/15/21 07/15/21 History oral suspension (Pepto-Bismol) Patient History Medical History (Updated 07/15/21 @ 13:24 by Lang Michel MD) Arrhythmia "extra beat" Diabetes mellitus, type 2 History of COVID-19 10/2020 body ache, fatigue, fever, Headache Hypertension Umbilical hernia Surgical History No history of previous surgery Family History Sister Hypertension Father Diabetes Denies family history of Ovarian cancer Prostate cancer Coronary heart disease Breast cancer Colorectal cancer Social History (Updated 06/06/21 @ 09:03 by Leonarda Carpenter LPN) Smoking Status: Never smoker Tobacco Type: Cigarettes Cigarettes Per Day: a few every few months; Second Hand Exposure: Yes; Do You Dip or Chew Tobacco: Yes; Hx Alcohol Use: No Hx Substance Use: No Preferred Language: French Communication Ability: Effective Visual Impairment: No Limitations Hearing Ability: Normal Plugging Machine Operator Required: No Beliefs That Will Affect Care: None marital status: Current Living Situation: Parent current occupational status: employed 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 Alert and oriented. HEENT: Anicteric sclera. Neck: Thick neck but mild JVD and hepatic jugular reflux noted. No bruits. Normal carotid upstrokes bilaterally. Cardiac: PMI was nonpalpable. No ventricular heave. Regular and mildly tachycardic. Normal S1-S2. No murmurs, rubs, or gallops. Pulmonary: Bibasilar rales. Abdomen: Soft, nontender, nondistended, with normoactive bowel sounds. No bruits noted. Extremities: 2+ radial pulses bilaterally. 2+ posterior tibialis pulses bilatera lly. Trace bilateral lower extremity edema. No cyanosis. Psychiatric: Affect appears appropriate. Results & Data ([facility]) Vital Signs (Past 12 Hours) Vital Signs Temp Pulse Pulse Pulse Pulse Resp BP 07/15/21 11:17 36.5 C 107 H 18 07/15/21 08:00 117 H 07/15/21 07:45 36.8 C 114 H 18 138/91 07/15/21 06:27 36.4 C L 121 H 20 143/89 H 07/15/21 06:20 117 H 07/15/21 04:51 36.4 C L 121 H 20 143/89 H 07/15/21 04:00 115 H 22 07/15/21 03:49 117 H 20 150/83 H 07/15/21 02:33 117 H 116 H 07/15/21 02:00 113 H 23 BP Pulse Ox Pulse Ox Pulse Ox 07/15/21 11:17 138/92 93 07/15/21 08:00 07/15/21 07:45 93 07/15/21 06:27 93 07/15/21 06:20 07/15/21 04:51 93 07/15/21 04:00 90 07/15/21 03:49 93 07/15/21 02:33 91 95 07/15/21 02:00 94 Laboratory Results Laboratory Results - last 24 hr 07/14/21 07/14/21 07/14/21 23:22 23:22 23:22 WBC 10.53 RBC 4.95 Hgb 15.8 Hct 46.0 MCV 92.9 MCH 31.9 MCHC 34.3 RDW Std Deviation 44.9 RDW Coeff of [place]se[place] 13.4 Plt Count 263 MPV 10.1 Immature Gran % (Auto) 0.2 Neut % (Auto) 63.0 Lymph % (Auto) 27.2 [place] % (Auto) 7.6 Eos % (Auto) 1.8 Baso % (Auto) 0.2 Neut # (Auto) 6.64 H Lymph # (Auto) 2.86 [place] # (Auto) 0.80 H Eos # (Auto) 0.19 Baso # (Auto) 0.02 Immature Gran # (Auto) 0.02 D-Dimer 500 Sodium 140 Potassium 3.9 Chloride 108 H Carbon Dioxide 27 Anion Gap 5.0 BUN 21 H Creatinine 1.18 Est Cr Clr Drug Dosing 109.2 Est GFR ( Amer) 84.1 Est GFR (Non-Af Amer) 72.5 BUN/Creatinine Ratio 18.1 Glucose 115 H POC Glucose Calcium 8.5 Magnesium Total Bilirubin 0.4 AST 31 ALT 60 Alkaline Phosphatase 60 Troponin I 0.040 NT-Pro-B Natriuret Pep 1594 H Total Protein 6.7 Albumin 3.7 Globulin 3.0 Albumin/Globulin Ratio 1.2 Lipase 114 TSH COVID-19 Eval Order SARS-CoV-2 (PCR) 07/15/21 07/15/21 07/15/21 02:31 02:31 06:13 WBC RBC Hgb Hct MCV MCH MCHC RDW Std Deviation RDW Coeff of [place] Plt Count MPV Immature Gran % (Auto) Neut % (Auto) Lymph % (Auto) [place] % (Auto) Eos % (Auto) Baso % (Auto) Neut # (Auto) Lymph # (Auto) [place] # (Auto) Eos # (Auto) Baso # (Auto) Immature Gran # (Auto) D-Dimer Sodium Potassium Chloride Carbon Dioxide Anion Gap BUN Creatinine Est Cr Clr Drug Dosing Est GFR ( Amer) Est GFR (Non-Af Amer) BUN/Creatinine Ratio Glucose POC Glucose 109 H Calcium Magnesium Total Bilirubin AST ALT Alkaline Phosphatase Troponin I NT-Pro-B Natriuret Pep Total Protein Albumin Globulin Albumin/Globulin Ratio Lipase TSH COVID-19 Eval Order Covid19 at [facility] SARS-CoV-2 (PCR) NEGATIVE 07/15/21 07/15/21 07/15/21 08:19 08:19 11:55 WBC RBC Hgb Hct MCV MCH MCHC RDW Std Deviation RDW Coeff of [place] Plt Count MPV Immature Gran % (Auto) Neut % (Auto) Lymph % (Auto) [place] % (Auto) Eos % (Auto) Baso % (Auto) Neut # (Auto) Lymph # (Auto) [place] # (Auto) Eos # (Auto) Baso # (Auto) Immature Gran # (Auto) D-Dimer Sodium Potassium Chloride Carbon Dioxide Anion Gap BUN Creatinine Est Cr Clr Drug Dosing Est GFR ( Amer) Est GFR (Non-Af Amer) BUN/Creatinine Ratio Glucose POC Glucose 113 H Calcium Magnesium 2.4 Total Bilirubin AST ALT Alkaline Phosphatase Troponin I 0.049 H* NT-Pro-B Natriuret Pep Total Protein Albumin Globulin Albumin/Globulin Ratio Lipase TSH 1.890 COVID-19 Eval Order SARS-CoV-2 (PCR) Diagnostic Findings Telemetry personally reviewed: Sinus tachycardia. No arrhythmia. CTA chest 07/15/2021: No PE. Small bilateral pleural effusions. Cardiomegaly with heart failure and pulmonary hypertension per Radiology. CT abdomen/pelvis 07/14/2021: CT findings suspicious for early acute cholecystitis per Radiology. Ultrasound gallbladder 07/15/2021: Gallbladder wall thickening with no evidence of karl cholecystic edema or cholelithiasis. Negative sonographic Joy sign. Chart reviewed. ECG personally reviewed 07/14/2021: Sinus tachycardia PVCs 122 beats per minute. Nonspecific T-wave abnormality. Echo 07/15/2021: Severely dilated LV. EF 20-25%. Global hypokinesis. Type 3 diastolic dysfunction. Moderately dilated RV with moderately to severely reduced systolic function. Severe biatrial dilation. Moderate to severe MR. Moderate TR. RVSP 56. Trace pericardial effusion. Medications Administered Current Inpatient Medications Acetaminophen (Acetaminophen 325 Mg Tab) 650 mg PO Q4H PRN PRN Reason: Pain or Fever Stop: 08/14/21 04:50 Aspirin (Aspirin 81 Mg Ectab) 81 mg PO QAM [facility] Stop: 08/14/21 09:14 Last Admin: 07/15/21 09:59 Dose: 81 mg Documented by: Dextrose (Dextrose 50% 50 Ml Syringe) 25 - 50 ml IV UD PRN; Protocol PRN Reason: Hypoglycemia Protocol Stop: 08/14/21 08:57 Enoxaparin Sodium (Enoxaparin 150 Mg/Ml Syr) 129 mg SQ Q12 [facility] Stop: 08/14/21 09:14 Last Admin: 07/15/21 09:59 Dose: 129 mg Documented by: Glucagon (Glucagon For Inj 1 Mg Vial) 1 mg SQ UD PRN; Protocol PRN Reason: Hypoglycemia Protocol Stop: 08/14/21 08:57 Glucose (Glucose 10 Tabs/Tube) 4 - 8 tabs PO UD PRN; Protocol PRN Reason: Hypoglycemia Protocol Stop: 08/14/21 08:57 Glucose (Glucose 40% Gel 15 Gm Tube) 15 - 30 gm PO UD PRN; Protocol PRN Reason: Hypoglycemia Protocol Stop: 08/14/21 08:57 Insulin Aspart (Insulin Aspart 100 Units/Ml 3 Ml Pen) 0 units SC ACHS [facility] Stop: 08/14/21 11:29 Last Admin: 07/15/21 12:11 Dose: 4 units Documented by: Levalbuterol HCl (Levalbuterol Hcl 0.63 Mg/3 Ml Neb) 0.63 mg NEB Q6R PRN PRN Reason: wheezing/sob Stop: 08/14/21 12:59 Miscellaneous (Carbohydrates For Hypoglycemia ) 15 - 30 gm PO UD PRN PRN Reason: Hypoglycemia Protocol Stop: 08/14/21 08:57 Ondansetron HCl (Ondansetron Inj 2 Mg/Ml 2 Ml Vial) 4 mg IV Q6H PRN PRN Reason: Nausea Stop: 08/14/21 04:50 PG Care Time/CCT Total # of Minutes Spent Total Time Spent with Patient: Total time spent is greater than 50% in coordination of care (as documented) at patient's floor/unit and/or counseling patient: Coding Level of Care Code 09123 Inpt Consult Level 5 Diagnoses Acute HFrEF (heart failure with reduced ejection fraction) I50.21 Cardiomyopathy I42.9 Mitral regurgitation I34.0 Tricuspid regurgitation I07.1 Pulmonary hypertension I27.20 Elevated troponin R77.8 HTN (hypertension) I10
[2021-07-15] MEDS: NITROGLYCERIN 2% OINTMENT 30GM TUBE EXT SCH (16:28)
[2021-07-15] MEDS: FUROSEMIDE INJ 20 MG/2 ML VIAL IV SCH (16:28)
[2021-07-15 17:11] LABS: Chol HDL Ratio 4; Cholesterol 132 mg/dl (0-200); HDL Cholesterol 35 mg/dl; LDL Cholesterol Calculated 38 mg/dl; Triglycerides 296 mg/dl (0-150); VLDL Cholesterol 59 mg/dl
--- NOTE | 2021-07-15 23:33 | Electrocardiogram Report ---
Test Reason : Blood Pressure : / mmHG Vent. Rate : 122 BPM Atrial Rate : 122 BPM P-R Int : 142 ms QRS Dur : 092 ms QT Int : 326 ms P-R-T Axes : 045 034 -48 degrees QTc Int : 464 ms Poor data quality, interpretation may be adversely affected Sinus tachycardia with frequent Premature ventricular complexes Possible Left atrial enlargement Nonspecific T wave abnormality Abnormal ECG No previous ECGs available Confirmed by Lang Michel ([id number]) on 07/15/2021 11:33:35 PM Referred By: REFERRED SELF Confirmed By:Lang Michel
[2021-07-16] MEDS: NITROGLYCERIN 2% OINTMENT 30GM TUBE EXT SCH ×3 (00:10→13:10)
[2021-07-16] MEDS: ACETAMINOPHEN 325 MG TAB PO PRN ×2 (00:10→06:05)
--- NOTE | 2021-07-16 05:49 | Electrocardiogram Report ---
Test Reason : Blood Pressure : / mmHG Vent. Rate : 114 BPM Atrial Rate : 114 BPM P-R Int : 156 ms QRS Dur : 098 ms QT Int : 368 ms P-R-T Axes : 059 046 -37 degrees QTc Int : 507 ms Sinus tachycardia with frequent Premature ventricular complexes Possible Left atrial enlargement Nonspecific T wave abnormality Abnormal ECG When compared with ECG of 14-JUL-2021 22:59, No significant change Confirmed by Lang Michel ([id number]) on 07/16/2021 5:49:13 AM Referred By: REFERRED SELF Confirmed By:Lang Michel
[2021-07-16 07:04] LABS: Basophils # (auto) 0.02 K/uL (0-0.2); Basophils % (auto) 0.2 %; Eosinophils # (auto) 0.09 K/uL (0-0.5); Eosinophils % (auto) 0.9 %; Hematocrit (blood only) 43.8 % (42-52); Hemoglobin 15.4 g/dL (14.0-18.0); Immature Granulocytes # (auto) 0.02 K/uL (0.00-0.02); Immature Granulocytes % (auto) 0.2 %; Lymphocytes # (auto) 2.15 K/uL (1.2-3.4); Lymphocytes % (auto) 22.4 %; Mean Corpuscular Hemoglobin 31.6 pg (25-34); Mean Corpuscular Hgb Conc 35.2 g/dL (32-36); Mean Corpuscular Volume 89.9 fL (80-100); Mean Platelet Volume 10.1 fL (7.4-10.4); Monocytes # (auto) 0.78 K/uL (0.11-0.59); Monocytes % (auto) 8.1 %; Neutrophils # (auto) 6.54 K/uL (1.4-6.5); Neutrophils % (auto) 68.2 %; Platelet Count 257 K/uL (130-400); RDW Coefficient of Variation 13.3 % (11.5-14.5); RDW Standard Deviation 42.7 fL (36.4-46.3); Red Blood Count 4.87 M/uL (4.7-6.1)
[2021-07-16 07:35] LABS: Albumin Level 3.6 gm/dl (3.4-5.0); BUN Creatinine Ratio 18.6 (10-20); Calcium 8.8 mg/dl (8.5-10.1); Creatinine Clr Calc Pharmacy 112.4 ml/min; Est GFR (African American) 88.6 ml/min; Est GFR (Non-African American) 76.4 ml/min; Potassium 3.8 mmol/L (3.5-5.1)
[2021-07-16 07:46] LABS: Albumin Globulin Ratio 1.2 (0.9-2); Bilirubin,Total 1.2 mg/dl (0.2-1); Globulin 3.1 gm/dl (2.5-4.0); Total Protein 6.7 gm/dl (6.4-8.2)
[2021-07-16] MEDS: ASPIRIN 81 MG ECTAB PO SCH (09:15)
[2021-07-16] MEDS: FUROSEMIDE INJ 20 MG/2 ML VIAL IV SCH (09:16)
[2021-07-16] MEDS: ENOXAPARIN 150 MG/ML SYR SQ SCH (09:17)
[2021-07-16] MEDS: INSULIN ASPART 100 UNITS/ML 3 ML PEN SC SCH ×4 (09:28→20:39)
--- NOTE | 2021-07-16 11:18 | Cardiology Progress Note ---
Date of Service July 16, 2021 Assessment & Plan (1) Acute HFrEF (heart failure with reduced ejection fraction): (2) Cardiomyopathy: (3) Mitral regurgitation: (4) Tricuspid regurgitation: (5) Pulmonary hypertension: (6) Elevated troponin: (7) HTN (hypertension): Plan: ASSESSMENT/PLAN: 1. Acute heart failure with reduced EF: Reasonable diuresis yesterday. Continue Lasix. Continue for goal of 1 L negative for now today. Will get a better sense of filling pressures with cardiac catheterization. Recommend Metoprolol succinate and Entresto, if tolerated, before discharge. Chronically has been on ARB and would continue ARB for now. Low-sodium diet. Strict I&Os. Daily weights. Heart failure program. 2. Cardiomyopathy: Etiology not yet identified. Recommend ischemic evaluation given history of diabetes and hypertension. If no improvement in LV systolic function on optimal therapy, would consider ICD for primary prevention in the future. Cardiac catheterization may be performed today. He was agreeable. Medical therapy as above. 3. Mitral and tricuspid regurgitation: MR likely functional. Will monitor over time. Will likely repeat transthoracic echo after some medical therapy and diuresis. 4. Pulmonary hypertension: Likely due to hypervolemia from CHF. Will continue to monitor. 5. Elevated troponin: Troponin is not sufficiently elevated to rule in for myocardial infarction, but has not yet peaked. Could be due to CHF exacerbation, but did present with abdominal/chest pressure. He has not ruled in for myocardial infarction and presenting symptoms not overly suggestive of angina although ischemic heart disease will be evaluated soon with cardiac catheterization. 6. Hypertension: Blood pressure adequately controlled. 7. Disposition: I will be away from the hospital tomorrow. Sign-out was given to Dr. Agosto. Heart failure program on discharge. Admission and Anticipated Discharge Date Admission Date: July 15, 2021 Subjective Overall, patient feeling better. Has shortness of breath at times. He denies syncope, near-syncope, palpitations, edema, or bleeding. He has occasional abdominal/chest discomfort when laying in bed. He was on room air during our visit today. Review of systems: As above. Physical Exam Physical Exam: Gen.: No acute distress. Alert and oriented. HEENT: Anicteric sclera. Neck: Thick neck, without appreciable JVD. Cardiac: PMI was nonpalpable. No ventricular heave. Regular and mildly tachycardic. Normal S1-S2. No murmurs, rubs, or gallops. Pulmonary: Bibasilar rales. Abdomen: Soft, nontender, nondistended, with normoactive bowel sounds. No bruits noted. Extremities: 2+ radial pulses bilaterally. 2+ posterior tibialis pulses bilaterally. Trace bilateral lower extremity edema. No cyanosis. Psychiatric: Affect appears appropriate. Results & Data ([facility]) Vital Signs (Past 12 Hours) Vital Signs Temp Pulse Pulse Resp BP Pulse Ox 07/16/21 11:10 111 H 17 116/80 93 07/16/21 10:07 114 H 07/16/21 07:46 36.7 C 114 H 13 163/99 H 95 07/16/21 03:50 36.5 C 112 H 18 137/77 94 07/15/21 23:19 36.4 C L 114 H 18 138/90 93 Intake & Output 07/14/21 07/15/21 07/16/21 07/17/21 06:59 06:59 06:59 06:59 Intake Total 1120 / 1120 Output Total 2175 / 2175 Balance -1055 / -1055 Weight 283 lb 15.286 oz 276 lb 3.827 oz Laboratory Results Laboratory Results - last 24 hr 07/15/21 07/15/21 07/15/21 11:55 15:55 15:55 WBC RBC Hgb Hct MCV MCH MCHC RDW Std Deviation RDW Coeff of [place] Plt Count MPV Immature Gran % (Auto) Neut % (Auto) Lymph % (Auto) [place] % (Auto) Eos % (Auto) Baso % (Auto) Neut # (Auto) Lymph # (Auto) [place] # (Auto) Eos # (Auto) Baso # (Auto) Immature Gran # (Auto) Sodium Potassium Chloride Carbon Dioxide Anion Gap BUN Creatinine Est Cr Clr Drug Dosing Est GFR ( Amer) Est GFR (Non-Af Amer) BUN/Creatinine Ratio Glucose POC Glucose 113 H Calcium Magnesium Total Bilirubin AST ALT Alkaline Phosphatase Troponin I 0.052 H* Total Protein Albumin Globulin Albumin/Globulin Ratio Triglycerides 296 H Cholesterol 132 LDL Cholesterol, Calc 38 VLDL Cholesterol, Calc 59 HDL Cholesterol 35 Cholesterol/HDL Ratio 4 07/15/21 07/15/21 07/15/21 16:12 20:07 23:32 WBC RBC Hgb Hct MCV MCH MCHC RDW Std Deviation RDW Coeff of [place] Plt Count MPV Immature Gran % (Auto) Neut % (Auto) Lymph % (Auto) [place] % (Auto) Eos % (Auto) Baso % (Auto) Neut # (Auto) Lymph # (Auto) [place] # (Auto) Eos # (Auto) Baso # (Auto) Immature Gran # (Auto) Sodium Potassium Chloride Carbon Dioxide Anion Gap BUN Creatinine Est Cr Clr Drug Dosing Est GFR ( Amer) Est GFR (Non-Af Amer) BUN/Creatinine Ratio Glucose POC Glucose 99 94 Calcium Magnesium Total Bilirubin AST ALT Alkaline Phosphatase Troponin I 0.080 H* Total Protein Albumin Globulin Albumin/Globulin Ratio Triglycerides Cholesterol LDL Cholesterol, Calc VLDL Cholesterol, Calc HDL Cholesterol Cholesterol/HDL Ratio 07/16/21 07/16/21 07/16/21 06:32 06:32 06:32 WBC 9.60 RBC 4.87 Hgb 15.4 Hct 43.8 MCV 89.9 MCH 31.6 MCHC 35.2 RDW Std Deviation 42.7 RDW Coeff of [place] 13.3 Plt Count 257 MPV 10.1 Immature Gran % (Auto) 0.2 Neut % (Auto) 68.2 Lymph % (Auto) 22.4 [place] % (Auto) 8.1 Eos % (Auto) 0.9 Baso % (Auto) 0.2 Neut # (Auto) 6.54 H Lymph # (Auto) 2.15 [place] # (Auto) 0.78 H Eos # (Auto) 0.09 Baso # (Auto) 0.02 Immature Gran # (Auto) 0.02 Sodium 133 L Potassium 3.8 Chloride 102 Carbon Dioxide 22 Anion Gap 9.0 BUN 21 H Creatinine 1.13 Est Cr Clr Drug Dosing 112.4 Est GFR ( Amer) 88.6 Est GFR (Non-Af Amer) 76.4 BUN/Creatinine Ratio 18.6 Glucose 112 H POC Glucose Calcium 8.8 Magnesium 2.4 Total Bilirubin 1.2 H D AST 27 ALT 54 Alkaline Phosphatase 49 Troponin I Total Protein 6.7 Albumin 3.6 Globulin 3.1 Albumin/Globulin Ratio 1.2 Triglycerides Cholesterol LDL Cholesterol, Calc VLDL Cholesterol, Calc HDL Cholesterol Cholesterol/HDL Ratio 07/16/21 09:32 WBC RBC Hgb Hct MCV MCH MCHC RDW Std Deviation RDW Coeff of [place] Plt Count MPV Immature Gran % (Auto) Neut % (Auto) Lymph % (Auto) [place] % (Auto) Eos % (Auto) Baso % (Auto) Neut # (Auto) Lymph # (Auto) [place] # (Auto) Eos # (Auto) Baso # (Auto) Immature Gran # (Auto) Sodium Potassium Chloride Carbon Dioxide Anion Gap BUN Creatinine Est Cr Clr Drug Dosing Est GFR ( Amer) Est GFR (Non-Af Amer) BUN/Creatinine Ratio Glucose POC Glucose 144 H Calcium Magnesium Total Bilirubin AST ALT Alkaline Phosphatase Troponin I Total Protein Albumin Globulin Albumin/Globulin Ratio Triglycerides Cholesterol LDL Cholesterol, Calc VLDL Cholesterol, Calc HDL Cholesterol Cholesterol/HDL Ratio Diagnostic Findings Telemetry personally reviewed: Sinus tachycardia. No arrhythmia. ECG 07/16/2021: Sinus tachycardia with PVCs 115 beats per minute. Nonspecific T-wave abnormality. Medications Administered Current Inpatient Medications Acetaminophen (Acetaminophen 325 Mg Tab) 650 mg PO Q4H PRN PRN Reason: Pain or Fever Stop: 08/14/21 04:50 Last Admin: 07/16/21 06:05 Dose: 650 mg Documented by: Aspirin (Aspirin 81 Mg Ectab) 81 mg PO QAM HAKEEM Stop: 08/14/21 09:14 Last Admin: 07/16/21 09:15 Dose: 81 mg Documented by: Dextrose (Dextrose 50% 50 Ml Syringe) 25 - 50 ml IV UD PRN; Protocol PRN Reason: Hypoglycemia Protocol Stop: 08/14/21 08:57 Enoxaparin Sodium (Enoxaparin 150 Mg/Ml Syr) 129 mg SQ Q12 HAKEEM Stop: 08/14/21 09:14 Last Admin: 07/16/21 09:17 Dose: 129 mg Documented by: Furosemide (Furosemide Inj 20 Mg/2 Ml Vial) 20 mg IV Q12 HAKEEM Stop: 08/14/21 16:59 Last Admin: 07/16/21 09:16 Dose: 20 mg Documented by: Glucagon (Glucagon For Inj 1 Mg Vial) 1 mg SQ UD PRN; Protocol PRN Reason: Hypoglycemia Protocol Stop: 08/14/21 08:57 Glucose (Glucose 10 Tabs/Tube) 4 - 8 tabs PO UD PRN; Protocol PRN Reason: Hypoglycemia Protocol Stop: 08/14/21 08:57 Glucose (Glucose 40% Gel 15 Gm Tube) 15 - 30 gm PO UD PRN; Protocol PRN Reason: Hypoglycemia Protocol Stop: 08/14/21 08:57 Insulin Aspart (Insulin Aspart 100 Units/Ml 3 Ml Pen) 0 units SC ACHS HAKEEM Stop: 08/14/21 11:29 Last Admin: 07/16/21 09:28 Dose: 9 units Documented by: Levalbuterol HCl (Levalbuterol Hcl 0.63 Mg/3 Ml Neb) 0.63 mg NEB Q6R PRN PRN Reason: wheezing/sob Stop: 08/14/21 12:59 Miscellaneous (Carbohydrates For Hypoglycemia ) 15 - 30 gm PO UD PRN PRN Reason: Hypoglycemia Protocol Stop: 08/14/21 08:57 Nitroglycerin (Nitroglycerin 2% Ointment 30gm Tube) 0.5 inch EXT Q6 HAKEEM Stop: 08/14/21 16:59 Last Admin: 07/16/21 06:00 Dose: 0.5 inch Documented by: Ondansetron HCl (Ondansetron Inj 2 Mg/Ml 2 Ml Vial) 4 mg IV Q6H PRN PRN Reason: Nausea Stop: 08/14/21 04:50 PG Care Time/CCT Total # of Minutes Spent Total Time Spent with Patient: Total time spent is greater than 50% in coordination of care (as documented) at patient's floor/unit and/or counseling patient: Coding Level of Care Code 87508 Subseq Hosp Care Lvl 3 Diagnoses Acute HFrEF (heart failure with reduced ejection fraction) I50.21 Cardiomyopathy I42.9 Mitral regurgitation I34.0 Tricuspid regurgitation I07.1 Pulmonary hypertension I27.20 Elevated troponin R77.8 HTN (hypertension) I10
[2021-07-16] MEDS ORDERED: niCARdipine HCL INJ 2.5 MG/ML 10 ML AMP ONE (11:33)
[2021-07-16] MEDS ORDERED: HEPARIN (PORCINE) 1000 UNIT/ML 10 ML (CATH LAB USE ONLY) ONE (11:33)
[2021-07-16] MEDS ORDERED: fentaNYL citrate 100 MCG/2 ML VIAL ONE (11:33)
[2021-07-16] MEDS ORDERED: MIDAZOLAM HCL 1 MG/ML 2ML VIAL ONE (11:33)
[2021-07-16] MEDS ORDERED: NITROGLYCERIN/D5W 100MCG/ML 20ML SYR ONE (11:33)
--- NOTE | 2021-07-16 11:37 | Pre Anesthesia Assessment ---
Date of Service July 16, 2021 Pre Sedation Assessment Vital Signs Temp Pulse Pulse Resp BP Pulse Ox 07/16/21 11:10 111 H 17 116/80 93 07/16/21 10:07 114 H 07/16/21 07:46 98.1 F 114 H 13 163/99 H 95 07/16/21 03:50 97.7 F 112 H 18 137/77 94 07/15/21 23:19 97.5 F L 114 H 18 138/90 93 07/15/21 19:34 97.9 F 113 H 20 133/83 90 07/15/21 15:00 98.1 F 116 H 119 H 20 133/89 94 Cardiovascular RRR, no murmur, no edema Respiratory normal respiratory effort, lungs clear to auscultation Pre-Sedation Airway Assessment Smoking Status: Never smoker Hx Sleep Apnea: No Hx Difficult Intubation: No Short, Thick Neck: No Thyromental Distance: > or= 3.5 Finger Breadths Oral Cavity: + WNL Mallampati Class: III ASA: ASA3 NPO Status Date of Last Intake of Fluids: 07/16/21 Time of Last Intake of Fluids: 07:30 Date of Last Intake of Solid Food: 07/16/21 Time of Last Intake of Solid Foods: 07:30 Procedure Planning Contraindications for Sedation: none Current Medications Reviewed: Yes Notes The planned sedation has been discussed with the patient. Informed Consent was obtained. I have identified the patient, determined the appropriateness of sedation and have assessed the patient immediately prior to the procedure. All medicine(s) and interventions are by my order.
[2021-07-16 12:25] LABS: iSTAT Arterial Blood Gas HCO3 24 meg/L (19-24); iSTAT Arterial Blood Gas pCO2 28 mmHg (35-46); iSTAT Arterial Blood Gas pH 7.55 (7.35-7.45); iSTAT Arterial Blood Gas pO2 84 mmHg (80-95); iSTAT Carbon Dioxide 25 mmol/L (24-31)
--- NOTE | 2021-07-16 12:28 | Post Anesthesia Assessment ---
Date of Service July 16, 2021 Post Sedation Assessment Vital Signs Temp Pulse Pulse Resp BP Pulse Ox 07/16/21 11:10 111 H 17 116/80 93 07/16/21 10:07 114 H 07/16/21 07:46 98.1 F 114 H 13 163/99 H 95 07/16/21 03:50 97.7 F 112 H 18 137/77 94 07/15/21 23:19 97.5 F L 114 H 18 138/90 93 07/15/21 19:34 97.9 F 113 H 20 133/83 90 07/15/21 15:00 98.1 F 116 H 119 H 20 133/89 94 Recovery Score Activity: Moves 4 extremities Respiration: Deep Breath/Cough Circulation: +/-20% PreAnes Value Consciousness: Fully Awake Oxygen Saturation: O2 needed for >90% Discharge Sedation Level of Care: Fast Track Phase II Post Sedation Plan On clinical assessment, the patient appears to have tolerated the sedation without complications. Patient is recovering as anticipated. Patient will continue to be monitored by nursing and may be discharged when sedation discharge criteria are met per below protocol. Upon Completions of procedure up to 15 minutes continue every 5 minute vital signs and the P.A.R. score; then discharge to a Phase I or Fast Track to Phase II per the following guidelines: * Discharge Patient to appropriate Phase II area if PAR is 8 or greater or r eturn to pre- procedure baseline. The post - procedure orders will be as directed. * If PAR score is less than 8 or not return to pre-procedure baseline then patient will follow Phase I monitoring till PAR is reached for Phase II. The Phase I may be done in procedure room or may call to secure a Phase I area. * If naloxone or flumazenil are used for reversal, hold in Phase I for continued monitoring from when last reversal dose was given for a minimum of 60 minutes or longer pending the nurse and/or physician discretion of patient condition before discharge to Phase II. Please call the Sedation Physician to re-evaluate and complete post-note for discharge to Phase II area. Do NOT discharge from procedure sedation or Phase 1 until post- sedation evaluation note is complete by procedure /sedation MD Sedation Discharge Instructions to be given to the patient at discharge to home.
--- NOTE | 2021-07-16 12:38 | Cardiac Catheterization ---
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 Cardiac Status Clinical evaluation leading to the procedure CAD Presenation: Sx unlikely to be ischemic Anginal Classification: No Symptoms Heart Failure: NYHA Class: CCS IV Cardiogenic Shock within 24 Hours: No Cardiac Arrest within 24 Hours: No Imaging Studies Past 6 Months: Yes Stress Studies Past 6 Months: No Diagnostic Physicians Name: Sylvester Wright MD Status: Elective Closure Device Percutaneous Entry Location: Radial Closure Device: Radial Band Recommendations: Medical Therapy and/or Counseling Intraprocedure Events Significant Disection: No Perforation: No Cardiac Cath Procedure Full Procedure Date July 16, 2021 Pre-Procedure Diagnosis Pre-Procedure Diagnosis: CHF and Cardiomyopathy AUC Score AUC Score: 7 Post-Procedure Diagnosis Post-Procedure Diagnosis: Normal Coronary Arteries and Elevated Intracardiac Pressures Procedure(s) Performed Procedure(s) Performed: Coronary Angiography, Left Heart Cath, Right Heart Cath and Ultrasound Guided Vascular Access Sprue Knocker Sylvester Wright MD Case Preparer And Liner(s) Deibler Estimated Blood Loss Estimated Blood Loss: 10 Medication(s) Medication(s): Fentanyl, Lidocaine 1% and Versed Summary of Findings Indication: Severe LV dysfunction, acute heart failure Access: 6 Fr right radial artery, 6 Fr right antecubital vein under ultrasound guidance Catheters: Phelps, 6 Fr Elizabeth Findings: LM -large caliber, no significant disease LAD -large caliber, no significant disease. Extends to apex. Large D1 without disease. Circumflex -medium caliber, no significant disease. RCA -dominant, very large caliber, no significant disease. Large PDA, PLB without disease. Right heart catheterization: RA 17 RV 52/21 PA 59/36/47 PAWP 23 LVEDP 28 PaSat 53% AoSat 98% [place] CO/CI 3.6/1.4 Thermo CO/CI 3.8/1.5 Arterial Closure: TR band Summary: 1. Angiographically normal coronary arteries 2. Elevated left and right-sided filling pressures 3. Moderate to severe pulmonary hypertension 4. Reduced cardiac output Recommendations: Continued diuresis and guideline directed medical therapy for nonischemic cardiomyopathy per Dr. Michel Hemodynamics Rest Ao:: 115/78/94 Final Ao: 108/83/91 LV: 104/28 Recommendations Recommendations: Medical Therapy and/or Counseling Specimens Specimens: None Radiation Exposure (mGy) 853 Contrast (mls) 45 Fluids (cc crystalloids) Fluids (cc crystalloids): 80 Drains Drains: none Anesthesia moderate [id number] Procedural Complication(s) None Disposition PCU I attest to the content of the Intraoperative Record and any orders documented therein. Any exceptions are noted below. [facility] [place] Card Cath Procedure Codes Cardiac Catheterization Procedure 1: Cardiovascular Cath Procedures: 00134 Coronaries & LHC (+/-LV) & RHC Therapeutic Services & Ancillary Proc Procedure 1: Cardiovascular Tx and Anc Procedures: 83366 Ultrasonic Guidance Vascular Access Moderate Sedation Procedure 1: Sedation/Anesthesia: 79905 Mod Sedation by the same physician;Init15 Min Child Age 5 & Up PG Care Time/CCT Total # of Minutes Spent Total Time Spent with Patient: Total time spent is greater than 50% in coordination of care (as documented) at patient's floor/unit and/or counseling patient:
--- NOTE | 2021-07-16 12:50 | Electrocardiogram Report ---
Test Reason : Blood Pressure : / mmHG Vent. Rate : 115 BPM Atrial Rate : 115 BPM P-R Int : 152 ms QRS Dur : 098 ms QT Int : 364 ms P-R-T Axes : 059 053 -48 degrees QTc Int : 503 ms Sinus tachycardia with occasional Premature ventricular complexes Left atrial enlargement Incomplete right bundle branch block Diffuse Nonspecific T wave abnormality Abnormal ECG When compared with ECG of 15-JUL-2021 12:47, No significant change was found Confirmed by Collin Agosto ([id number]) on 07/16/2021 12:49:37 PM Referred By: REFERRED SELF Confirmed By:Collin Agosto
[2021-07-16] MEDS: TELMISARTAN 40 MG TAB PO SCH (13:31)
[2021-07-16] MEDS: FUROSEMIDE 40 MG/4 ML VIAL IV SCH (16:40)
--- NOTE | 2021-07-16 19:39 | Hospitalist Progress Note ---
Date of Service July 16, 2021 Assessment & Plan (1) Acute combined systolic and diastolic heart failure: Plan: etiology uncertain. NOT ischemic - cath wnl today. does endorse heavy episodic drinking - check B1 level in am. check ferritin level. check SANDY. no obvious viral infection recently. appreciate cardiology assistance. agree w/ increase in lasix. cont ARB. defer beta william initiation for now. daily labs. (2) Pulmonary hypertension: Plan: 2nd to volume overload. should improve with diuresis. (3) Tricuspid regurgitation: (4) Mitral regurgitation: (5) Cardiomyopathy: Plan: etiology uncertain. see #1 above. (6) Sinus tachycardia: Plan: 2nd new onset systolic CHF. compensatory. TSH wnl. H/H on cbc wnl. (7) Elevated troponin: Plan: myocardial demand ischemia in setting of #1. NORMAL CORONARIES on cath today. (8) HTN (hypertension): Plan: controlled with ARB, lasix. (9) Diabetes type 2, controlled: Plan: h/o. a1c <6% on last check in June. hold PO meds. at discharge consider stopping amaryl completely and just using metformin as monotherapy. (10) Abnormal CT scan, gallbladder: Plan: no stones or sludge seen no RUQ pain pericholecystic fluid - suspect due to volume overload state from #1 follow clinically Plan: recent tick bite - reasonable to check a lyme ab in am change observation status to full admission status given ongoing decompensated CHF and need for ongoing hospitalization Admission and Anticipated Discharge Date Admission Date: July 15, 2021 Subjective tele overnight- sinus tach pt sitting in chair seems frustrated with new dx of CHF we discussed cath results (normal) and that cause of CHF is still not known he asks if tick-borne disease can cause CHF he had a tick bite about 2 weeks ago he does not recall any recent illness or exposure to illness had COVID last spring still with significant dyspnea with minimal exertion does admit to heavy drinking on "weekends only" (6-pack of beer or more) Review of Systems Review of Systems: gen - no fevers, no chills CV - no chest pains; +orthopnea, PND, dyspnea Pulm - no cough; +AWAN GI - no pain or nausea Physical Exam Physical Exam: gen - NAD, sitting upright in chair at bedside neck - minimal JVD sitting in chair upright mouth - MMM heart - tachy, s1, s2, 2/6 systolic murmur LSB lungs - decreased bs bases; mild rales bases abd - soft NT ND BS+ ext - no edema, pulses 2+ b/l skin - no rash psych - irritable Results & Data Results & Data ([facility]) Vital Signs (Past 12 Hours) Vital Signs Temp Pulse Pulse Resp BP BP Pulse Ox 07/16/21 19:30 36.7 C 122 H 17 128/87 94 07/16/21 17:29 114 H 18 122/70 95 07/16/21 16:29 119 H 18 130/93 95 07/16/21 15:29 110 H 17 137/77 95 07/16/21 14:29 116 H 17 119/82 96 07/16/21 13:59 105 H 18 124/91 95 07/16/21 13:29 116 H 17 118/78 95 07/16/21 13:14 36.6 C 129 H 18 125/74 94 07/16/21 12:59 89 17 127/76 93 07/16/21 12:45 105 H 18 131/75 94 07/16/21 12:37 111 H 18 122/77 94 07/16/21 11:10 111 H 17 116/80 93 07/16/21 10:07 114 H 07/16/21 07:46 36.7 C 114 H 13 163/99 H 95 Laboratory Results Laboratory Results - last 24 hr 07/15/21 07/15/21 07/16/21 20:07 23:32 06:32 WBC 9.60 RBC 4.87 Hgb 15.4 Hct 43.8 MCV 89.9 MCH 31.6 MCHC 35.2 RDW Std Deviation 42.7 RDW Coeff of [place] 13.3 Plt Count 257 MPV 10.1 Immature Gran % (Auto) 0.2 Neut % (Auto) 68.2 Lymph % (Auto) 22.4 [place] % (Auto) 8.1 Eos % (Auto) 0.9 Baso % (Auto) 0.2 Neut # (Auto) 6.54 H Lymph # (Auto) 2.15 [place] # (Auto) 0.78 H Eos # (Auto) 0.09 Baso # (Auto) 0.02 Immature Gran # (Auto) 0.02 POC pH POC pCO2 POC pO2 POC HCO3 POC Total CO2 POC Base Excess POC ABG O2 Sat Sodium Potassium Chloride Carbon Dioxide Anion Gap BUN Creatinine Est Cr Clr Drug Dosing Est GFR ( Amer) Est GFR (Non-Af Amer) BUN/Creatinine Ratio Glucose POC Glucose 94 Calcium Magnesium Total Bilirubin AST ALT Alkaline Phosphatase Troponin I 0.080 H* Total Protein Albumin Globulin Albumin/Globulin Ratio 07/16/21 07/16/21 07/16/21 06:32 06:32 09:32 WBC RBC Hgb Hct MCV MCH MCHC RDW Std Deviation RDW Coeff of [place] Plt Count MPV Immature Gran % (Auto) Neut % (Auto) Lymph % (Auto) [place] % (Auto) Eos % (Auto) Baso % (Auto) Neut # (Auto) Lymph # (Auto) [place] # (Auto) Eos # (Auto) Baso # (Auto) Immature Gran # (Auto) POC pH POC pCO2 POC pO2 POC HCO3 POC Total CO2 POC Base Excess POC ABG O2 Sat Sodium 133 L Potassium 3.8 Chloride 102 Carbon Dioxide 22 Anion Gap 9.0 BUN 21 H Creatinine 1.13 Est Cr Clr Drug Dosing 112.4 Est GFR ( Amer) 88.6 Est GFR (Non-Af Amer) 76.4 BUN/Creatinine Ratio 18.6 Glucose 112 H POC Glucose 144 H Calcium 8.8 Magnesium 2.4 Total Bilirubin 1.2 H D AST 27 ALT 54 Alkaline Phosphatase 49 Troponin I Total Protein 6.7 Albumin 3.6 Globulin 3.1 Albumin/Globulin Ratio 1.2 07/16/21 07/16/21 07/16/21 12:12 13:18 16:11 WBC RBC Hgb Hct MCV MCH MCHC RDW Std Deviation RDW Coeff of [place] Plt Count MPV Immature Gran % (Auto) Neut % (Auto) Lymph % (Auto) [place] % (Auto) Eos % (Auto) Baso % (Auto) Neut # (Auto) Lymph # (Auto) [place] # (Auto) Eos # (Auto) Baso # (Auto) Immature Gran # (Auto) POC pH 7.55 H* POC pCO2 28 L POC pO2 84 POC HCO3 24 POC Total CO2 25 POC Base Excess 1.0 POC ABG O2 Sat 98.0 H Sodium Potassium Chloride Carbon Dioxide Anion Gap BUN Creatinine Est Cr Clr Drug Dosing Est GFR ( Amer) Est GFR (Non-Af Amer) BUN/Creatinine Ratio Glucose POC Glucose 102 H 132 H Calcium Magnesium Total Bilirubin AST ALT Alkaline Phosphatase Troponin I Total Protein Albumin Globulin Albumin/Globulin Ratio PG Care Time/CCT Total # of Minutes Spent Total Time Spent with Patient: Total time spent is greater than 50% in coordination of care (as documented) at patient's floor/unit and/or counseling patient: Coding Level of Care Code 15889 Subseq Hosp Care Lvl 3 Diagnoses Acute combined systolic and diastolic heart failure I50.41 Pulmonary hypertension I27.20 Tricuspid regurgitation I07.1 Mitral regurgitation I34.0 Cardiomyopathy I42.9 Sinus tachycardia R00.0 Elevated troponin R77.8 HTN (hypertension) I10 Diabetes type 2, controlled E11.[address] scan, gallbladder R93.2
[2021-07-16] MEDS ORDERED: FUROSEMIDE 40 MG/4 ML VIAL IV SCH (21:00)
[2021-07-17 07:01] LABS: iSTAT Arterial Blood Gas HCO3 27 meg/L (19-24); iSTAT Arterial Blood Gas pCO2 41 mmHg (35-46); iSTAT Arterial Blood Gas pH 7.43 (7.35-7.45); iSTAT Arterial Blood Gas pO2 < 32 mmHg (80-95); iSTAT Carbon Dioxide 28 mmol/L (24-31)
[2021-07-17 07:10] LABS: Albumin Level 3.7 gm/dl (3.4-5.0); BUN Creatinine Ratio 15.5 (10-20); Creatinine Clr Calc Pharmacy 106.8 ml/min; Est GFR (African American) 83.2 ml/min; Est GFR (Non-African American) 71.8 ml/min; Potassium 3.8 mmol/L (3.5-5.1)
[2021-07-17 07:16] LABS: Albumin Globulin Ratio 1.2 (0.9-2); Bilirubin,Total 1.2 mg/dl (0.2-1); Ferritin 417.5 ng/ml (8-388); Globulin 3.2 gm/dl (2.5-4.0); Total Protein 6.9 gm/dl (6.4-8.2)
[2021-07-17 08:02] LABS: Lyme Ab IgG w/WB Rflx Negative (Negative); Lyme Ab IgM w/WB Rflx Negative (Negative)
[2021-07-17] MEDS: TELMISARTAN 40 MG TAB PO SCH (08:07)
[2021-07-17] MEDS: FUROSEMIDE 40 MG/4 ML VIAL IV SCH ×2 (08:07→17:11)
[2021-07-17] MEDS: ASPIRIN 81 MG ECTAB PO SCH (08:07)
[2021-07-17] MEDS: INSULIN ASPART 100 UNITS/ML 3 ML PEN SC SCH ×4 (08:09→21:05)
--- NOTE | 2021-07-17 08:16 | Electrocardiogram Report ---
Test Reason : Blood Pressure : / mmHG Vent. Rate : 113 BPM Atrial Rate : 113 BPM P-R Int : 154 ms QRS Dur : 094 ms QT Int : 356 ms P-R-T Axes : 053 037 006 degrees QTc Int : 488 ms Sinus tachycardia with frequent Premature ventricular complexes Left atrial enlargement Diffuse Nonspecific T wave abnormality Abnormal ECG When compared with ECG of 16-JUL-2021 05:04, No significant change was found Confirmed by Collin Agosto ([id number]) on 07/17/2021 8:15:52 AM Referred By: REFERRED SELF Confirmed By:Collin Agosto
[2021-07-17] MEDS: THIAMINE HCL 100 MG TAB PO SCH ×2 (11:00→20:00)
--- NOTE | 2021-07-17 11:08 | Cardiology Progress Note ---
Date of Service July 17, 2021 Assessment & Plan (1) Acute HFrEF (heart failure with reduced ejection fraction): (2) Cardiomyopathy: (3) Mitral regurgitation: (4) Tricuspid regurgitation: (5) Pulmonary hypertension: (6) Elevated troponin: (7) HTN (hypertension): Plan: ASSESSMENT/PLAN: 1. Acute heart failure with reduced EF: He appears near euvolemic on exam. Elevated right and left sided pressures on cath. Adequate diuresis yesterday. Continue Lasix. Continue for goal of 1 L negative per day to fully optimize his volume status. Recommend Metoprolol succinate and Entresto, if tolerated, before discharge. He's been tachycardic and seems more compensated, therefore would start Metoprolol succinate today. Chronically has been on ARB and would continue ARB for now. Low-sodium diet. Strict I&Os. Daily weights. Heart failure program. 2. Cardiomyopathy: Nonischemic. Etiology not yet identified. He has a history of moderate alcohol use, tick exposure, and s/p COVID19 in December 2020. B1, SANDY pending. Lyme negative. Will add SPEP/UPEP, ALEIDA. Continue to optimize GDMT and titrate as able. If no improvement in LV systolic function on optimal therapy, would consider ICD for primary prevention in the future. Medical therapy as above. 3. Mitral and tricuspid regurgitation: MR likely functional. Will monitor over time. Will likely repeat transthoracic echo after some medical therapy and diuresis. 4. Pulmonary hypertension: Likely due to hypervolemia from CHF. Will continue to monitor. 5. Elevated troponin: Presenting symptoms not overly suggestive of angina. Cardiac cath with normal coronaries. 6. Hypertension: Blood pressure adequately controlled. 7. Disposition: Will continue to follow along during hospitalization. Heart failure follow up as been arranged for 07/23 at 1030am. Admission and Anticipated Discharge Date Admission Date: July 16, 2021 Subjective Patient reports he's feeling well. Continues to improve daily. He is lying in bed at the time of my visit. He reports his breathing is improved but not quite to baseline. He's 99% on room air. No lower extremity edema. He slept well with his head slightly elevated. He denies cough, chest pain, or palpitations. Cardiac catheterization yesterday was well tolerated, normal coronaries. Net - 2 L overnight,-3 L total for admission. Weight 276 lb on scale yesterday, no weight today. Physical Exam Physical Exam: Gen.: No acute distress. Alert and oriented. HEENT: Anicteric sclera. Neck: Thick neck, without appreciable JVD. Cardiac: PMI was nonpalpable. No ventricular heave. Regular and mildly tachycardic. Normal S1-S2. No murmurs, rubs, or gallops. Pulmonary: Normal respiratory effort. Lungs clear to auscultation, no wheezes/crackles. Abdomen: Soft, nontender, nondistended, with normoactive bowel sounds. No bruits noted. Extremities: 2+ radial pulses bilaterally. 2+ posterior tibialis pulses bilaterally. Trace bilateral lower extremity edema. No cyanosis. Psychiatric: Affect appears appropriate. Results & Data ([facility]) Vital Signs (Past 12 Hours) Vital Signs Temp Pulse Pulse Resp BP Pulse Ox 07/17/21 10:29 106 H 07/17/21 08:10 98.2 F 76 16 115/66 99 07/17/21 04:35 97.9 F 109 H 18 110/69 94 PG Care Time/CCT Total # of Minutes Spent Total Time Spent with Patient: Total time spent is greater than 50% in coordination of care (as documented) at patient's floor/unit and/or counseling patient: Coding Level of Care Code 82864 Subseq Hosp Care Lvl 3 Diagnoses Acute HFrEF (heart failure with reduced ejection fraction) I50.21 Cardiomyopathy I42.9 Mitral regurgitation I34.0 Tricuspid regurgitation I07.1 Pulmonary hypertension I27.20 Elevated troponin R77.8 HTN (hypertension) I10
[2021-07-17] MEDS ORDERED: PANTOprazole 40 MG TAB PO ONE (16:00)
--- NOTE | 2021-07-17 21:57 | Hospitalist Progress Note ---
Date of Service July 17, 2021 Assessment & Plan (1) Acute combined systolic and diastolic heart failure: Plan: etiology uncertain. NOT ischemic - cath wnl. does endorse heavy episodic drinking - check B1 level. while awaiting B1 level place on empiric thiamine 200mg PO BID. ferritin level mildly high - check transferring saturation in am, r/o hemochromatosis. SANDY sent/pending. no obvious viral infection recently. appreciate cardiology assistance. cont ARB. beta william initiation tomorrow am. cont IV lasix. daily labs. volume status improving. as per HPI - counseled on fluid restriction, salt restriction, weights, etc. nutrition consult for dietary counseling. (2) Pulmonary hypertension: Plan: 2nd to volume overload. should improve with diuresis. (3) Tricuspid regurgitation: Plan: "functional" in the setting of his severe CHF (4) Mitral regurgitation: Plan: nothing to do at this time (5) Cardiomyopathy: Plan: etiology uncertain. see #1 above. (6) Sinus tachycardia: Plan: 2nd new onset systolic CHF. compensatory. TSH wnl. H/H on cbc wnl. beta william initiation tomorrow per cardiology. (7) Elevated troponin: Plan: myocardial demand ischemia in setting of #1. NORMAL CORONARIES on cath this admission. (8) HTN (hypertension): Plan: controlled with ARB, lasix. (9) Diabetes type 2, controlled: Plan: h/o. a1c <6% on last check in June. hold PO meds. at discharge consider stopping amaryl completely and just using metformin as monotherapy. (10) Abnormal CT scan, gallbladder: Plan: no stones or sludge seen no RUQ pain pericholecystic fluid - suspect due to volume overload state from #1 follow clinically Plan: recent tick bite - lyme ab's negative. heartburn/ROSA - add PPI. total care time today - 35 min care d/w CHF team, Sarita MEJIA Admission and Anticipated Discharge Date Admission Date: July 16, 2021 Subjective tele overnight - ST, occasional ventricular trigeminy dyspnea improved AWAN improved having "heartburn" at times but denies abd pain or GI intolerance with meals no RUQ pain with meals at bedside -- had extensive discussion regarding his new dx of CHF, discussed test results, discussed plan of care discussed fluid restriction, salt restriction, daily weights, meds, etc questions answered 20 min spent directly at bedside Review of Systems Review of Systems: gen - fatigue improved CV - orthopnea improved pulm - AWAN improved GI - heartburn/burping/belching Physical Exam Physical Exam: gen - NAD neck - JVD still present mouth - MMM heart - tachy, s1, s2, 2/6 systolic murmur LSB lungs - decreased bs bases; no obvious rales or wheeze abd - soft NT ND BS+; no HSM ext - no edema, pulses 2+ b/l skin - no rash Results & Data Results & Data ([facility]) Vital Signs (Past 12 Hours) Vital Signs Temp Pulse Pulse Pulse Resp BP BP 07/17/21 20:33 103 H 103/74 07/17/21 20:04 36.3 C L 112 H 18 94/67 L 07/17/21 11:50 36.8 C 76 19 106/96 07/17/21 10:29 106 H Pulse Ox 07/17/21 20:33 07/17/21 20:04 97 07/17/21 11:50 96 07/17/21 10:29 Laboratory Results Laboratory Results - last 24 hr 07/16/21 07/17/21 07/17/21 12:13 06:05 06:05 POC pH 7.43 POC pCO2 41 POC pO2 < 32 L POC HCO3 27 H POC Total CO2 28 POC Base Excess 3.0 H POC ABG O2 Sat 53.0 L Sodium 136 Potassium 3.8 Chloride 103 Carbon Dioxide 23 Anion Gap 10.0 BUN 18 Creatinine 1.19 Est Cr Clr Drug Dosing 106.8 Est GFR ( Amer) 83.2 Est GFR (Non-Af Amer) 71.8 BUN/Creatinine Ratio 15.5 Glucose 95 POC Glucose Calcium 9.0 Ferritin 417.5 H Total Bilirubin 1.2 H AST 22 ALT 50 Alkaline Phosphatase 52 Total Protein 6.9 Albumin 3.7 Globulin 3.2 Albumin/Globulin Ratio 1.2 Vitamin B1 Pending SANDY Screen Pending Lyme Disease IgG Ab Lyme Disease IgM Ab 07/17/21 07/17/21 07/17/21 06:05 07:17 11:12 POC pH POC pCO2 POC pO2 POC HCO3 POC Total CO2 POC Base Excess POC ABG O2 Sat Sodium Potassium Chloride Carbon Dioxide Anion Gap BUN Creatinine Est Cr Clr Drug Dosing Est GFR ( Amer) Est GFR (Non-Af Amer) BUN/Creatinine Ratio Glucose POC Glucose 107 H 91 Calcium Ferritin Total Bilirubin AST ALT Alkaline Phosphatase Total Protein Albumin Globulin Albumin/Globulin Ratio Vitamin B1 SANDY Screen Lyme Disease IgG Ab Negative Lyme Disease IgM Ab Negative 07/17/21 07/17/21 16:32 20:29 POC pH POC pCO2 POC pO2 POC HCO3 POC Total CO2 POC Base Excess POC ABG O2 Sat Sodium Potassium Chloride Carbon Dioxide Anion Gap BUN Creatinine Est Cr Clr Drug Dosing Est GFR ( Amer) Est GFR (Non-Af Amer) BUN/Creatinine Ratio Glucose POC Glucose 116 H 100 H Calcium Ferritin Total Bilirubin AST ALT Alkaline Phosphatase Total Protein Albumin Globulin Albumin/Globulin Ratio Vitamin B1 SANDY Screen Lyme Disease IgG Ab Lyme Disease IgM Ab PG Care Time/CCT Total # of Minutes Spent Total Time Spent with Patient: Total time spent is greater than 50% in coordination of care (as documented) at patient's floor/unit and/or counseling patient: Coding Level of Care Code 29627 Subseq Hosp Care Lvl 3 Diagnoses Acute combined systolic and diastolic heart failure I50.41 Pulmonary hypertension I27.20 Tricuspid regurgitation I07.1 Mitral regurgitation I34.0 Cardiomyopathy I42.9 Sinus tachycardia R00.0 Elevated troponin R77.8 HTN (hypertension) I10 Diabetes type 2, controlled E11.[address] scan, gallbladder R93.2
[2021-07-18 07:32] LABS: BUN Creatinine Ratio 17.7 (10-20); Est GFR (African American) 80.8 ml/min; Est GFR (Non-African American) 69.7 ml/min; Potassium 4.4 mmol/L (3.5-5.1)
[2021-07-18] MEDS: INSULIN ASPART 100 UNITS/ML 3 ML PEN SC SCH ×4 (08:25→21:24)
[2021-07-18] MEDS: PANTOprazole 40 MG TAB PO SCH (08:40)
[2021-07-18] MEDS: THIAMINE HCL 100 MG TAB PO SCH ×2 (08:40→21:23)
[2021-07-18] MEDS: TELMISARTAN 40 MG TAB PO SCH (08:40)
[2021-07-18] MEDS: ASPIRIN 81 MG ECTAB PO SCH (08:40)
[2021-07-18] MEDS: METOPROLOL SUCC 25MG EXT REL TAB PO SCH (08:40)
[2021-07-18] MEDS: FUROSEMIDE 40 MG/4 ML VIAL IV SCH ×2 (08:40→17:19)
--- NOTE | 2021-07-18 10:34 | Cardiology Progress Note ---
Date of Service July 18, 2021 Assessment & Plan (1) Acute HFrEF (heart failure with reduced ejection fraction): (2) Cardiomyopathy: (3) Mitral regurgitation: (4) Tricuspid regurgitation: (5) Pulmonary hypertension: (6) Elevated troponin: (7) HTN (hypertension): Plan: ASSESSMENT/PLAN: 1. Acute heart failure with reduced EF: He appears near euvolemic on exam. Elevated right and left sided pressures on cath. Continues to diurese >2 L per day with stable kidney function. Continue Lasix IV today. Could consider transitioning to PO tomorrow if planning to discharge soon. Would recommend 40 mg po BID on discharge. Continue for goal of 1-2 L negative per day to fully optimize his volume status. Metoprolol succinate initiated this morning. Would transition Telmisartan to low dose Entresto prior to or at discharge. Could have CM look into out of pocket cost for him. Low-sodium diet. Strict I&Os. Daily STANDING weights. Heart failure program. 2. Cardiomyopathy: Nonischemic. Etiology not yet identified. He has a history of moderate alcohol use, tick exposure, and s/p COVID19 in December 2020. B1, SANDY pending. Lyme negative. SPEP/UPEP, ALEIDA pending. Continue to optimize GDMT and titrate as able. If no improvement in LV systolic function on optimal therapy, would consider ICD for primary prevention in the future. Medical therapy as above. 3. Mitral and tricuspid regurgitation: MR likely functional. Will monitor over time. Will likely repeat transthoracic echo after some medical therapy and diuresis. 4. Pulmonary hypertension: Likely due to hypervolemia from CHF. Will continue to monitor. 5. Elevated troponin: Presenting symptoms not overly suggestive of angina. Cardiac cath with normal coronaries. 6. Hypertension: Blood pressure adequately controlled. 7. Disposition: Will continue to follow along during hospitalization. Heart failure follow up as been arranged for 07/23 at 1030am. Admission and Anticipated Discharge Date Admission Date: July 16, 2021 Subjective Patient reports he's feeling well. Continues to improve daily. He is lying in bed at the time of my visit. He reports his breathing is improved, estimates 80% tf baseline. He's 95+% on room air. No lower extremity edema. He slept well with his head slightly elevated. He denies cough, chest pain, or palpitations. Net - 2 L overnight,-5.3 L total for admission. Weight 264 lb on standing scale today. Physical Exam Physical Exam: Gen.: No acute distress. Alert and oriented. HEENT: Anicteric sclera. Neck: Thick neck, without appreciable JVD. Cardiac: PMI was nonpalpable. No ventricular heave. Regular and mildly tachycardic. Normal S1-S2. No murmurs, rubs, or gallops. Pulmonary: Normal respiratory effort. Lungs clear to auscultation, no wheezes/crackles. Abdomen: Soft, nontender, nondistended, with normoactive bowel sounds. No bruits noted. Extremities: 2+ radial pulses bilaterally. 2+ posterior tibialis pulses bilaterally. No bilateral lower extremity edema. No cyanosis. Psychiatric: Affect appears appropriate. Results & Data ([facility]) Vital Signs (Past 12 Hours) Vital Signs Temp Pulse Pulse Resp BP Pulse Ox 07/18/21 03:38 97.7 F 100 H 18 105/71 96 07/18/21 00:10 111 H 07/17/21 23:17 97.7 F 108 H 16 102/70 93 PG Care Time/CCT Total # of Minutes Spent Total Time Spent with Patient: Total time spent is greater than 50% in coordination of care (as documented) at patient's floor/unit and/or counseling patient: Coding Level of Care Code 49955 Subseq Hosp Care Lvl 3 Diagnoses Acute HFrEF (heart failure with reduced ejection fraction) I50.21 Cardiomyopathy I42.9 Mitral regurgitation I34.0 Tricuspid regurgitation I07.1 Pulmonary hypertension I27.20 Elevated troponin R77.8 HTN (hypertension) I10
--- NOTE | 2021-07-18 21:03 | Hospitalist Progress Note ---
Date of Service July 18, 2021 Assessment & Plan (1) Acute combined systolic and diastolic heart failure: Plan: etiology uncertain. NOT ischemic - cath wnl. does endorse heavy episodic drinking - checked B1 level and pending. while awaiting B1 level placed on empiric thiamine 200mg PO BID. ferritin level mildly high -but transferrin saturation sat wnl making hemochromatosis highly unlikely. SANDY sent/pending. no obvious viral infection recently. SPEP/UPEP pending. appreciate cardiology assistance. cont ARB. beta william initiation today. cont IV lasix 1 more day then over to PO?? daily labs. volume status appears to be approaching euvolemia. as per HPI - counseled on fluid restriction, salt restriction, weights, etc. nutrition consult for dietary counseling. (2) Pulmonary hypertension: Plan: 2nd to volume overload. should improve with diuresis. (3) Tricuspid regurgitation: Plan: "functional" in the setting of his severe CHF (4) Mitral regurgitation: Plan: nothing to do at this time (5) Cardiomyopathy: Plan: etiology uncertain. see #1 above. (6) Sinus tachycardia: Plan: 2nd new onset systolic CHF. compensatory. TSH wnl. H/H on cbc wnl. beta william initiation today (7) Elevated troponin: Plan: myocardial demand ischemia in setting of #1. NORMAL CORONARIES on cath this admission. (8) HTN (hypertension): Plan: controlled with ARB, lasix. (9) Diabetes type 2, controlled: Plan: h/o. a1c <6% on last check in June. hold PO meds. at discharge consider stopping amaryl completely and just using metformin as monotherapy. (10) Abnormal CT scan, gallbladder: Plan: no stones or sludge seen no RUQ pain pericholecystic fluid - suspect due to volume overload state from #1 follow clinically Plan: recent tick bite - lyme ab's negative. heartburn/ROSA - added PPI and sx's resolved care d/w CHF team, Sarita MEJIA Admission and Anticipated Discharge Date Admission Date: July 16, 2021 Subjective pt feeling very good today walking the hallways with minimal AWAN no chest symptoms GERD sx's gone tele with ectopy and NSR or ST Review of Systems Review of Systems: gen - fatigue improed CV - no further orthopnea pulm - mild intermittent dry cough GI - no abd pain Physical Exam Physical Exam: gen - NAD neck - JVD resolved mouth - MMM heart - RR, ectopy, s1, s2, 2/6 systolic murmur LSB lungs - CTA b/l, airation improved; rales resolved abd - soft NT ND BS+; no HSM ext - no edema, pulses 2+ b/l skin - no rash Results & Data Results & Data ([facility]) Vital Signs (Past 12 Hours) Vital Signs Temp Pulse Pulse Resp BP Pulse Ox 07/18/21 15:44 111 H 07/18/21 15:00 36.8 C 82 20 103/66 07/18/21 11:00 36.6 C 81 18 119/69 99 Laboratory Results BMP wnl today transferrin sat <20% on iron studies PG Care Time/CCT Total # of Minutes Spent Total Time Spent with Patient: Total time spent is greater than 50% in coordination of care (as documented) at patient's floor/unit and/or counseling patient: Coding Level of Care Code 99620 Subseq Hosp Care Lvl 2 Diagnoses Acute combined systolic and diastolic heart failure I50.41 Pulmonary hypertension I27.20 Tricuspid regurgitation I07.1 Mitral regurgitation I34.0 Cardiomyopathy I42.9 Sinus tachycardia R00.0 Elevated troponin R77.8 HTN (hypertension) I10 Diabetes type 2, controlled E11.[address] scan, gallbladder R93.2
[2021-07-19 07:30] LABS: Calcium 8.7 mg/dl (8.5-10.1); Creatinine Clr Calc Pharmacy 98.8 ml/min; Est GFR (African American) 78.4 ml/min; Est GFR (Non-African American) 67.7 ml/min; Magnesium 2.6 mg/dl (1.8-2.4); Potassium 4.1 mmol/L (3.5-5.1)
[2021-07-19] MEDS: ASPIRIN 81 MG ECTAB PO SCH (07:51)
[2021-07-19] MEDS: THIAMINE HCL 100 MG TAB PO SCH (07:52)
[2021-07-19] MEDS: PANTOprazole 40 MG TAB PO SCH (07:52)
[2021-07-19] MEDS: TELMISARTAN 40 MG TAB PO SCH (07:52)
[2021-07-19] MEDS: METOPROLOL SUCC 25MG EXT REL TAB PO SCH (07:52)
[2021-07-19] MEDS: INSULIN ASPART 100 UNITS/ML 3 ML PEN SC SCH ×2 (07:53→12:16)
[2021-07-19] MEDS: FUROSEMIDE 40 MG/4 ML VIAL IV SCH (08:58)
--- NOTE | 2021-07-19 13:03 | Cardiology Progress Note ---
Date of Service July 19, 2021 Assessment & Plan (1) Acute HFrEF (heart failure with reduced ejection fraction): (2) Cardiomyopathy: (3) Mitral regurgitation: (4) Tricuspid regurgitation: (5) Pulmonary hypertension: (6) Elevated troponin: (7) HTN (hypertension): Plan: ASSESSMENT/PLAN: 1. Acute heart failure with reduced EF: He appears near euvolemic on exam. Elevated right and left sided pressures on cath. Continues to diurese >2 L per day with stable kidney function. Patient stable for discharge. Would recommend 40 mg po BID on discharge. Suspect he will continue to diurese at home. Metoprolol succinate initiated yesterday, well tolerated. Would transition Telmisartan to low dose Entresto prior to discharge. No washout period needed. Plan to check BMP/magnesium in 7-10 days for monitoring. Could have CM look into out of pocket cost for him. Samples available that the office if needed. Low-sodium diet. Strict I&Os. Daily STANDING weights. Heart failure program. 2. Cardiomyopathy: Nonischemic. Etiology not yet identified. He has a history of moderate alcohol use, tick exposure, and s/p COVID19 in December 2020. B1, SANDY pending. Lyme negative. SPEP/UPEP, ALEIDA pending. Continue to optimize GDMT and titrate as able. If no improvement in LV systolic function on optimal therapy, would consider ICD for primary prevention in the future. Medical therapy as above. 3. Mitral and tricuspid regurgitation: MR likely functional. Will monitor over time. Will likely repeat transthoracic echo after some medical therapy and diuresis. 4. Pulmonary hypertension: Likely due to hypervolemia from CHF. Will continue to monitor. 5. Elevated troponin: Presenting symptoms not overly suggestive of angina. Cardiac cath with normal coronaries. 6. Hypertension: Blood pressure adequately controlled. 7. Disposition: Will continue to follow along during hospitalization. Heart failure follow up as been arranged for 07/23 at 1030am. Admission and Anticipated Discharge Date Admission Date: July 16, 2021 Subjective Patient reports he's feeling well. Continues to improve daily. He is sitting in the chair at the time of my visit. He reports his breathing is improved significantly since admission. He's 95+% on room air. No lower extremity edema. He slept well with his head slightly elevated. He denies cough, chest pain, or palpitations. Net - 2 L overnight,- 7 L total for admission. Weight 260 lb Physical Exam Physical Exam: Gen.: No acute distress. Alert and oriented. HEENT: Anicteric sclera. Neck: Thick neck, without appreciable JVD. Cardiac: PMI was nonpalpable. No ventricular heave. Regular and mildly tachycardic. Normal S1-S2. No murmurs, rubs, or gallops. Pulmonary: Normal respiratory effort. Lungs clear to auscultation, no wheezes/crackles. Abdomen: Soft, nontender, nondistended, with normoactive bowel sounds. No bruits noted. Extremities: 2+ radial pulses bilaterally. 2+ posterior tibialis pulses bilaterally. No bilateral lower extremity edema. No cyanosis. Psychiatric: Affect appears appropriate. Results & Data ([facility]) Vital Signs (Past 12 Hours) Vital Signs Temp Pulse Pulse Resp BP Pulse Ox 07/19/21 11:56 97.7 F 72 16 117/77 95 07/19/21 08:00 98.2 F 102 H 86 20 118/63 96 07/19/21 03:13 97.9 F 73 18 118/58 L 97 PG Care Time/CCT Total # of Minutes Spent Total Time Spent with Patient: Total time spent is greater than 50% in coordination of care (as documented) at patient's floor/unit and/or counseling patient: Coding Level of Care Code 40392 Subseq Hosp Care Lvl 3 Diagnoses Acute HFrEF (heart failure with reduced ejection fraction) I50.21 Cardiomyopathy I42.9 Mitral regurgitation I34.0 Tricuspid regurgitation I07.1 Pulmonary hypertension I27.20 Elevated troponin R77.8 HTN (hypertension) I10
--- NOTE | 2021-07-19 14:06 | Discharge Summary ---
Date of Service date of admission - July 15, 2021 date of discharge - July 19, 2021 Admission HPI Per Admitting Provider The patient is a 50-year-old male with a past medical history including diabetes mellitus, hypertension and obesity. He presents with a combination of symptoms of abdominal bloating and distention, nausea, shortness of breath, with symptoms worsening when he is supine. Symptoms have been going on for about 6 days, and is here in the ED at the request of his . Abnormal laboratories: WBC 10.53, glucose 115, BNP 1594. CT scan of abdomen and pelvis with contrast: Mildly distended gallbladder with gallbladder wall thickening, consider right upper quadrant ultrasound to assess for possible acute cholecystitis. Multiple hypodensities in the liver. Small bilateral pleural effusions. Mild peribronchial thickening which may be related to acute bronchitis or reactive airways disease. Nonspecific enlarged right hilar lymph node measuring 2 cm. Pulse ox at rest is 95%, and with exercise is 91% Principal Diagnosis acute systolic & diastolic congestive heart failure Discharge Exam gen - NAD neck - JVD resolved mouth - MMM heart - RR, ectopy, s1, s2, 2/6 systolic murmur LSB lungs - CTA b/l, airation improved; rales resolved abd - soft NT ND BS+; no HSM ext - no edema, pulses 2+ b/l skin - no rash Discharge Data Allergies Allergy/AdvReac Type Severity Reaction Status Date / Time No Known Allergies Allergy Mild Verified 07/23/21 10:28 Consultations [facility] Cardiology [facility] CHF Program Procedures Performed 1. echocardiogram: * severely dilated left ventricle with severely reduced systolic function; EF 20-25% * global hypokinesis * no LVH * grade 3 diastolic dysfunction * moderately dilated right ventricle with moderately to severely reduced systolic function * severe biatrial dilatation * moderate to severe mitral regurgitation * moderate tricuspid regurgitation * moderate pulmonary HTN * trace pericardial effusion 2. Operation Date: 07/16/21 12:00 Actual Procedures p Cath, Right and Left Heart - Sylvester Wright MD Findings: LM -large caliber, no significant disease LAD -large caliber, no significant disease. Extends to apex. Large D1 without disease. Circumflex -medium caliber, no significant disease. RCA -dominant, very large caliber, no significant disease. Large PDA, PLB without disease. Right heart catheterization: RA 17 RV 52/21 PA 59/36/47 PAWP 23 LVEDP 28 PaSat 53% AoSat 98% [place]mo CO/CI 3.6/1.4 Thermo CO/CI 3.8/1.5 Ordered Studies Chest X-Ray 07/14/21 23:01 XR chest 1V portable CLINICAL HISTORY: Chest Pain. COMPARISON STUDY: 04/21/2017 TECHNIQUE: 1 view of the chest FINDINGS: Single frontal view of the chest demonstrates the cardiomediastinal silhouette to be within normal limits. Patchy interstitial and alveolar opacities are present bilaterally. The findings are most characteristic of a viral type pneumonitis. Covid 19 pneumonia should be excluded. Diffuse interstitial edema would be less likely. There is no evidence for pleural effusion. There is no evidence for vascular congestion. There is no acute osseous pathology. IMPRESSION: Patchy interstitial and alveolar opacities bilaterally characteristic of a viral type pneumonitis and probable Covid 19 pneumonia. Diffuse interstitial edema would be less likely. ACT 112: Negative or not required by law. Electronically signed by: Garrick Cordoba M.D. 07/15/2021 7:17 AM Abdomen/Pelvis CT 07/14/21 23:57 CT abd pelvis IV con only CLINICAL HISTORY: upper abd pain and bloating COMPARISON STUDY: No previous studies for comparison. CT DOSE: 1448.18 mGy.cm TECHNIQUE: Standard CT of the Abdomen and Pelvis was performed with IV contrast. A dose lowering technique was utilized adhering to the principles of ALARA. Contrast Volume: Optiray 320, 95 ml. The patient did not receive oral contrast. FINDINGS: Lung base: There are small bilateral pleural effusions, right greater than left with mild bibasilar atelectasis, right greater than left. Heart size is mildly enlarged. Abdominal cavity: There is no evidence for abdominal mass, adenopathy or ascites. Liver: There is homogeneous attenuation of the liver parenchyma. There is no evidence for enhancing mass lesion. There is evidence for sharply defined hepatic cysts. Spleen: There is homogeneous attenuation of the splenic parenchyma. There is no enhancing mass lesion. Pancreas: There is homogeneous attenuation of the pancreatic parenchyma. There is no evidence for mass lesion or peripancreatic fluid collection. Gall Bladder: The gallbladder is distended with evidence for pericholecystic edema. No calculi are seen by CT. Findings are suspicious for early acute cholecystitis and follow-up ultrasound is recommended. Adrenal glands: The adrenal glands are normal in size and attenuation. There is no evidence for enhancing mass lesion. Kidneys: There is homogeneous attenuation of the renal parenchyma bilaterally. There is no evidence for renal calculus or hydronephrosis. There is no evidence for enhancing mass. Bowel: The bowel loops are normally placed within the abdomen and pelvis. There is no evidence for mass lesion. There are no inflammatory changes present. There is no evidence for free air. There is a normal appendix in the right lower quadrant. Bladder: The bladder is within normal limits with no evidence for focal mass, calculus or diverticulum. : There is no evidence for pelvic mass or adenopathy. There is no evidence for pelvic ascites. Vasculature: There is no evidence for aneurysmal dilatation of the abdominal aorta. Osseous structures: There is no acute osseous pathology. IMPRESSION: 1. CT findings suspicious for early acute cholecystitis. Gallbladder ultrasound is recommended for further evaluation. 2. Small bilateral pleural effusions, right greater than left with mild bibasilar atelectasis, right greater than left. 3. Additional nonacute findings as delineated above ACT 112: Negative or not required by law. Electronically signed by: Garrick Cordoba M.D. 07/15/2021 8:02 AM Gallbladder Ultrasound 07/15/21 02:04 US gallbladder LIMITED ABDOMEN CLINICAL HISTORY: abnormal CT, upper abd pain. Evaluate for cholecystitis. COMPARISON: CT of the abdomen and pelvis from 07/15/2021 TECHNIQUE: Multiple grayscale and color images of the right upper quadrant of the abdomen. FINDINGS: The study is limited by overlying bowel gas. Pancreas: The pancreas cannot be visualized. Liver: The liver is homogeneous in echogenicity There is no evidence for a focal mass. There is no intrahepatic biliary duct dilatation. Liver is enlarged measuring 20 cm in greatest length. Gallbladder: Compared to the CT examination, there is diffuse gallbladder wall thickening with no definite pericholecystic edema. There is no evidence for cholelithiasis. There was reported to be a negative sonographic Joy sign. Common Bile Duct: (CBD): It is normal in size measuring 4 mm. Inferior Vena Cava (IVC): The imaged IVC is patent. Right kidney: There is no evidence for hydronephrosis, calculus or gross renal mass. The kidney is normal in size. IMPRESSION: Ultrasound demonstrates the presence of gallbladder wall thickening with no evidence for pericholecystic edema or cholelithiasis. Negative sonographic Joy sign. Early acute cholecystitis cannot be completely excluded and follow-up hepatobiliary scan is recommended. ACT 112: Negative or not required by law. Electronically signed by: Garrick Cordoba M.D. 07/15/2021 8:11 AM Chest CTA 07/15/21 08:56 CT angio chest PE protocol CLINICAL HISTORY: r/o PE TECHNIQUE: Multidetector row helical CT of the chest was performed. Coronal and sagittal reformations were obtained. Automated dose lowering techniques and/or adjustment according to patient size were utilized for this exam. Comparison: None available at the time of this dictation. FINDINGS: Lungs and pleura: Small bilateral pleural effusions are seen. Diffuse emphysematous changes are seen. Heart and pericardium: Cardiomegaly is seen with biatrial enlargement. Reflux of contrast into the inferior vena cava is noted. Vessels: No evidence of pulmonary embolism. Pulmonary trunk measures 33 mm in diameter. Mediastinum and george: Subcentimeter lymph nodes are seen. Chest wall and lower neck: Unremarkable. Abdomen: Scattered hypodensities are seen in the liver which are too small to characterize but favored to represent cysts. Bones: Unremarkable. IMPRESSION: 1. No evidence of pulmonary embolism. 2. Small bilateral pleural effusions. 3. Cardiomegaly with heart failure and pulmonary hypertension. ACT 112: Negative or not required by law. Electronically signed by: Paxton Conner M.D. 07/15/2021 11:15 AM Hospital Course (1) Acute combined systolic and diastolic heart failure: New diagnosis, etiology uncertain. No evidence of ischemia - normal coronaries on heart catheterization. Patient did endorse heavy episodic drinking - checked B1 level and such was pending at discharge. While awaiting B1 level placed on empiric thiamine 200mg PO BID. Ferritin level mildly high but transferrin saturation was normal making hemochromatosis highly unlikely. SANDY sent/pending. No obvious viral infection recently. SPEP/UPEP pending. Patient was diuresed during his stay with significant improvement in all pulmonary symptoms. Lost 20+ pounds of water weight while hospitalized. Was ultimately initiated on low-dose metoprolol succinate 25mg daily. Additionally he will be asked to start Entresto twice daily. Lasix dosing at discharge - 40mg twice daily, along with potassium & magnesium supplementation once daily. He was counseled on fluid restriction, salt restriction, daily weights, etc. He received nutritional counseling by our nutrition team. He received formal CHF written instructions at discharge. Pineda recommendations were provided by [facility] Cardiology during his stay. He will follow-up with Mariaelena MEJIA with the [facility] CHF clinic within 1 week of discharge. (2) Pulmonary hypertension: Moderate on echo. (3) Tricuspid regurgitation: (4) Mitral regurgitation: (5) Cardiomyopathy: etiology uncertain. see #1 above. (6) Sinus tachycardia: 2nd new onset systolic CHF. compensatory. TSH wnl. H/H on cbc wnl. beta william was initiated during his stay. (7) Elevated troponin: myocardial demand ischemia in setting of #1. NORMAL CORONARIES on cath this admission. Peak troponin 0.08. (8) HTN (hypertension): controlled during the visit. His ARB-HCTZ was stopped due to the introduction of Entresto and metoprolol. (9) Diabetes type 2, controlled: h/o. a1c <6% on last check in June 2021. Recommended stopping amaryl completely and just using metformin twice daily as monotherapy. (10) Abnormal CT scan, gallbladder: no stones or sludge seen on CT. no RUQ pain during the visit. pericholecystic fluid seen on CT - suspect due to volume overload state from #1 rather than inflammatory fluid from acute cholecystitis. Did undergo a RUQ u/s - showed gall bladder wall thickening, but no pericholecystic fluid or gallstones/sludge. Patient advised to monitor for any post-prandial GI symptoms at home. Total Time Total Time Spent Total Time Spent (In Minutes): 45 Discharge Plan Discharge Items Patient Disposition: Home - Self-Care Reason For Visit: ABDOMINAL BLOATING, CHEST DISCOMFORT Discharge Diagnosis: Abdominal bloating, difficulty breathing, chest discomfort -- all due to newly discovered congestive heart failure. Activity: Per Instructions section Sexual Activity: Wait until after follow-up appointment Exercise/Sports: Wait until after follow-up appointment Non-emergency contact: Primary Care Provider and [facility] Call non-emergency contact if: you have any medication questions and your symptoms worsen Follow-up/Referrals: Demar Ruiz III, MD [Primary Care Provider] - (Dr Ruiz is leaving his practice in [place]; please contact the [place] office to establish care with another provider within the next 2-3 weeks.) Sarita Miguel PA-C [Physician Testing Engineer] - 07/23/21 10:30 am (Congestive Heart Failure Program Appointment Information Early follow up is essential to managing your heart failure. An appointment has been scheduled for you with the [facility] Heart Failure Program within 7 days of discharge. Anticipate this visit to be 30-60 minutes long. Please expect a pediatric rn phone call from one of our nurses approximately 48 hours from discharge. They will also be placing an order for lab work to be completed 1-2 days prior to your heart failure follow up appointment. Please be sure to have this done so we can go over the results when you come in. Office Location The cardiology office building is located in front of the hospital at [address] Bring the following with you to your follow-up doctor appointments: Please bring your daily weight log any discharge paperwork all of your medication bottles with you to this visit. ) Diet: Carb Consistent or DM2 and Low Sodium (2gm) Fluids: 1800ml (7 cups) Addtl Attending Provider Instructions: Mr Zarate, You were hospitalized for abdominal bloating, shortness of breath, and other chest symptoms. It was discovered that you had developed congestive heart failure. Congestive heart failure occurs when the heart becomes dysfunctional and the pumping ability of the heart is impaired. There are numerous causes of congestive heart failure (also known as cardiomyopathy). Common causes include coronary artery disease (this was ruled out with your normal heart catheterization), viruses, nutritional deficiencies, and hereditary/inherited causes. We have sent off various blood work to rule out these conditions. In many cases we often do not find a specific cause of the congestive heart failure. The congestive heart failure led to severe fluid retention/water retention which was causing your difficulty breathing and other symptoms. With use of diuretics ("water pills") we removed 20+ pounds of fluid while here. With that weight loss your symptoms improved. [facility] Cardiology saw you in consult and have recommended the following medications - 1. metoprolol succinate 25mg once daily; take your first dose tomorrow morning, 07/20/21. 2. Entresto 1 tablet twice daily; take your first dose tomorrow morning, 07/20/21. 3. lasix (furosemide) diuretic - 40mg every morning, and 40mg every afternoon. This is your fluid pill. You can start this tonight upon return home. Additional medications - 1. potassium supplement - can start tomorrow 2. magnesium supplement - can start tomorrow 3. thiamine supplement - can start tonight STOP your telmisartan-hydrochlorothiazide. STOP your glimepiride. CONTINUE your metformin for your diabetes. Please limit your total salt intake each day to no more than 2000mg (2 grams) per 24 hours. Limit total fluid intake to 1800cc each day. WEIGH YOURSELF EVERY MORNING on the same scale. When you wake up in the morning please urinate, then jump on the scale. Record these weights in a notebook. You ultimately will know what your "dry weight" is. Dry weight means that you do not have any extra fluid in your body. Your weight at time of discharge is 260 pounds. Your dry weight may be less than 260 pounds. Over the next couple of weeks we will more firmly determine your dry weight. Additional instructions following your heart catheterization - ACTIVITY RECOMMENDATIONS: It is common to feel weak and fatigue for a few days as you transition home. * Do not drive or operate any motorized equipment for the next three days. * Limit stair usage (2 or 3 trips a day only) for the next three days. * Do not lift anything heavier than 10 pounds for the next three days. * Do not engage in vigorous exercise or any sports until cleared by the paid search manager. * You may shower at this time. But do not immerse the right wrist for 3 days. Cleanse the site gently with soap and water. SPECIAL CARE INSTRUCTIONS: * After your procedure, it is normal to have a small bruise or small lump at the site. Examine your site daily for any change in the bruise or lump, redness, swelling, drainage or numbness. Notify your doctor if any change. BLEEDING: * If there is a small amount of bleeding at the site, lie down and apply firm pressure with a clean cloth for ten minutes. When the bleeding stops, lie quietly keeping the procedure limb straight for six hours. Notify your doctor as soon as possible. * If the bleeding does not stop after ten minutes or if there is a large amount of bleeding or spurting, call 911 immediately. Continue to lie down and hold firm pressure until help arrives. SKIN IRRITATION: * You may experience some redness and/or swelling in the area where radiation was administered. If any skin irritation occurs, please contact your family physician. Follow-up - see separate section Return to [facility] if - * you are having severe shortness of breath * you are having chest pains * you feel dizzy or lightheaded * any other concerns It was our pleasure to care for you at [facility]! Dr Jan Rogers Chlorine Operator Provider Instructions: Call your Primary Care doctor or paid search manager if any of the following symptoms or problems start or get worse: * Shortness of breath or difficulty breathing * Wake up at night short of breath * Chest pain * Cough * Swelling of your hands, feet, or legs * More fatigued or tired with your normal activity * Palpitations - sudden fast heart beats WEIGHT * Weigh yourself every morning after using the bathroom. * Use the same scale. * Wear the same amount of clothing. * Write your weight down on a chart. * Call your Primary Care doctor or [facility] if you gain more than 2-3 pounds in 1-2 days. This is typically a sign of fluid weight gain as a result of your congestive heart failure. Do not delay - call right away. MEDICATIONS * Use this discharge instruction sheet for medication instructions. * Take your medications at the time your doctor ordered. * Do not skip a dose of your medicines. * If you miss a dose of medicine, take it as soon as possible, but DO NOT DOUBLE A DOSE. * Read your medicine information when you get home. * Know all of the side effects of your medicine. If in doubt, ask your pharmacist * Call your Primary Care doctor's office if you have any side effects. * Be sure all of your doctors know what medicine and herbs you take (including cold, flu, and herbal medicine). Take the following with you to your follow-up doctor appointments: * Weight Chart * Medication List * List of questions Do not drink excessive alcohol, beer or wine. Pending Studies at Discharge: Yes Studies:: labs to determine if a specific disease has caused your congestive heart failure Stand-Alone Forms: My [facility] Viralize, Smoking Cessation Medications and DC Order Prescriptions: New metoprolol succinate 25 mg Tablet Extended Release 24 Hr 25 mg PO QAM Qty: 30 RF: 5 thiamine HCl (vitamin B1) [Vitamin B-1] 100 mg Tablet 200 mg PO BID 30 Days Qty: 120 RF: 0 furosemide [Lasix] 40 mg tablet 40 mg PO BID Qty: 60 RF: 2 potassium chloride 20 mEq tablet extended release 20 meq PO DAILY Qty: 30 RF: 2 magnesium oxide 400 mg (241.3 mg magnesium) tablet 400 mg PO DAILY Qty: 30 RF: 2 Entresto 24-26 mg tablet 1 tab PO BID Qty: 60 RF: 2 Continued metformin 500 mg tablet 500 mg PO BID Qty: 180 RF: 3 multivitamin [One-A-Day Essential] tablet 1 tab PO QAM RF: 0 Discontinued Suprep Bowel Prep Kit 17.5-3.13-1.6 gram recon soln See Rx Instructions PO .COMPLEX Qty: 354 RF: 0 glimepiride 1 mg tablet 1 mg PO QAM RF: 0 telmisartan-hydrochlorothiazid 80-12.5 mg tablet 1 tab PO QAM RF: 0 Discharge Orders: Discharge Order (Routine); Ordered 07/19/21 Ordered By: Lamin Conti/Other Patient Handouts: Heart Failure Meds, What Is Heart Failure, Heart Failure Signs of Flare-Up, Heart Failure: Tracking Your Weight, Heart Failure: Being Active, Living with Cardiomyopathy, Medicines for Cardiomyopathy, Coping with Heart Failure, Heart Failure Making Changes to ..., Cardiomyopathy Dc Admission Data Admit Date/Time: 07/16/21 15:49 Attending Provider: Lamin Montoya Admit Provider: Carlos Merino Primary Care Provider: Demar Ruiz III Other Providers: Carlos Merino ; Sarita Miguel ; Lang Michel Other Interventions: Discharge Summary Assessment (RN) Last Done: 07/19/21 14:54 Coding Level of Care Code D/C DAY MANAGEMENT >30 MINS Diagnoses Acute combined systolic and diastolic heart failure I50.41 Pulmonary hypertension I27.20 Tricuspid regurgitation I07.1 Mitral regurgitation I34.0 Cardiomyopathy I42.9 Sinus tachycardia R00.0 Elevated troponin R77.8 HTN (hypertension) I10 Diabetes type 2, controlled E11.[address] scan, gallbladder R93.2
[2021-07-19 20:36] LABS: Alpha 1 Globulin 0.3 g/dL (0.2-0.3); Alpha 2 Globulin 0.7 g/dL (0.5-0.9); Angiotensin Converting Enzyme 27 U/L (9-67); Beta-1-Globulin 0.4 g/dL (0.4-0.6); Beta-2-Globulin 0.3 g/dL (0.2-0.5); Gamma Globulin 0.6 g/dL (0.8-1.7); Monoclonal Protein Band 1 DNR g/dL (NONE DETECTED); Monoclonal Protein Band 2 DNR g/dL (NONE DETECTED); Monoclonal Protein Band 3 DNR g/dL (NONE DETECTED); Total Protein 6.5 g/dL (6.1-8.1)
[2021-07-22 15:11] LABS: Anti Nuclear Antibody Screen NEGATIVE (NEGATIVE)
[2021-07-23 08:17] LABS: Creatinine Ur 163 mg/dL (20-320); Protein, Urine Random 10 mg/dL (5-25); Ur Protein/Creat Ratio mg/g 61 mg/g creat (22-128); Urine Abnormal Protein Band 1 DNR mg/dL (NONE DETECTED); Urine Abnormal Protein Band 2 DNR mg/dL (NONE DETECTED); Urine Abnormal Protein Band 3 DNR mg/dL (NONE DETECTED); Urine Protein/Creatinine Ratio 0.061 (0.022-0.128)
== END 2021-07-19 15:07 | disposition home or self-care (01) | DRG 286 ==
LOC: 2N 22:47 → ED 22:47 → SUATTDRO 07-15 03:23 → 2N 07-15 04:18 → SUATTDRO 07-15 04:41 → 2S 07-15 16:06
DX: I50.41 Acute combined systolic (congestive) and diastolic (congestive) heart failure; R14.0 Abdominal distension (gaseous); I42.8 Other cardiomyopathies; Z86.16 Personal history of COVID-19; I08.1 Rheumatic disorders of both mitral and tricuspid valves; Z68.33 Body mass index [BMI] 33.0-33.9, adult; I11.0 Hypertensive heart disease with heart failure; Z79.84 Long term (current) use of oral hypoglycemic drugs; Z83.3 Family history of diabetes mellitus; I27.20 Pulmonary hypertension, unspecified; J20.9 Acute bronchitis, unspecified; I24.8 Other forms of acute ischemic heart disease; J91.8 Pleural effusion in other conditions classified elsewhere; R94.8 Abnormal results of function studies of other organs and systems; E66.9 Obesity, unspecified; E11.9 Type 2 diabetes mellitus without complications; R00.0 Tachycardia, unspecified